=== PATIENT | female | born 1930 | race Caucasian/White ===

== ENCOUNTER 2016-12-10 23:24 | Inpatient (IN) | payer OTHER ==
[~2016-12-10] VITALS: Ht 144.8 cm; Wt 58.2 kg
[~2016-12-10 23:24] MED LIST: ASCO1CAP3 PO; BILB1CAP PO; BIOT1TAB5 PO; BRIM0.2S18 OPB; BROM100T PO; CALC-51 PO; CHOL400T PO; GINK40CA3 PO; LORA-741 PO; LSN5 PO; LUTE6CAP PO; MULTCAP33 PO; OMEG1CAP71 PO; PHYT100T PO; PRED0.12 OPL; VITA10004 PO; ZOLP5TAB PO
[2016-12-10] MEDS ORDERED: SODIUM CHLORIDE 0.9% 500ML 500 ML IV STA (23:34)
[2016-12-10] MEDS ORDERED: BRIM0.1S OP (23:48)
[2016-12-10] MEDS ORDERED: LISI-729 PO (23:49)
[2016-12-11] LABS: BASO % 0.2 %; BASO ABS # 0.04 K/uL (0-0.2); COMPLETE YES; EOS % 0.1 %; HEMATOCRIT 38.6 % (37-47); IG% 0.3 %; LYMPH % 4.8 %; LYMPH ABS # 0.94 K/uL (1.2-3.4); MEAN CELL VOLUME 85.8 fL (80-100); MEAN CORPUSCULAR HEMOGLOBIN 28.9 pg (25-34); MEAN CORPUSCULAR HGB CONC 33.7 g/dl (32-36); MEAN PLATELET VOLUME 10.3 fL (7.4-10.4); MONO % 6.3 %; NEUT % 88.3 %; PLATELET COUNT 211 K/uL (130-400); WHITE BLOOD COUNT 19.69 K/uL (4.8-10.8)
[2016-12-11 00:16] LABS: ALT/SGPT 36 U/L (12-78); BLOOD UREA NITROGEN 17 mg/dl (7-18); BUN/CREATININE RATIO 24.4 (10-20); CARBON DIOXIDE 23 mmol/L (21-32); CHLORIDE 102 mmol/L (98-107); GLUCOSE 127 mg/dl (70-99); POTASSIUM 4.2 mmol/L (3.5-5.1); SODIUM 137 mmol/L (136-145)
[2016-12-11 00:21] LABS: ALKALINE PHOSPHATASE 89 U/L (45-117); AST/SGOT 40 U/L (15-37); CKMB/CK RATIO 2.5 (0-3.0)
[2016-12-11 00:55] LABS: MANUAL MICROSCOPIC REQUIRED? NO; REVIEW REQ? NO; URINE APPEARANCE CLEAR (CLEAR); URINE BILIRUBIN NEG (NEG); URINE COLOR YELLOW; URINE NITRITE NEG (NEG); URINE PH 5.5 (4.5-7.5); URINE SPECIFIC GRAVITY 1.019 (1.000-1.030); UROBILINOGEN NEG (NEG)
[2016-12-11] MEDS ORDERED: ALUMINUM/MAGNESIUM/SIMETH (MAALOX MAX) 30 ML UDC PO PRN (03:45)
[2016-12-11] MEDS ORDERED: MAGNESIUM HYDROXIDE SUSP 30 ML UDC PO PRN (03:45)
[2016-12-11] MEDS ORDERED: LORAZEPAM 0.5 MG TAB PO PRN (03:45)
[2016-12-11] MEDS ORDERED: MoRPHine SULFATE 2 MG/ML CARP IV PRN (03:45)
[2016-12-11] MEDS ORDERED: ONDANSETRON INJ 2 MG/ML 2 ML VIAL IV PRN (03:45)
[2016-12-11] MEDS ORDERED: ACETAMINOPHEN 325 MG TAB PO PRN (03:45)
[2016-12-11] MEDS ORDERED: KETOROLAC TROMETHAMINE 30 MG/ML VIAL IV STA (03:46)
--- NOTE | 2016-12-11 04:03 | EMERGENCY ROOM VISIT NOTE ---
History Report prepared by [place]: Philly Morales Under the Supervision of: Dr. Roger Jha M.D. First contact with patient: 23:28 Chief Complaint: FALL Stated Complaint: FALL History of Present Illness The patient is an 86 year old female who presents to the Emergency Room with complaints of an episode of a fall that occurred today. Per EMS, the patient lives alone. They state that her daughter found her at the bottom of 12 stairs after not being able to contact her. They state that it is unknown how many stairs she fell down and the exact time she fell. EMS states that she has hypertension and they have been fluctuating her medication recently. EMS states that she has an altered mental status. EMS states that they believe she isn't on blood thinners. The patient state that she is experiencing left shoulder pain , right big toe pain, and right hip pain. The patient denies abdominal pain. The patient currently rates her pain as a 3/10 in severity. Source of History: patient, EMS Onset: today Position: other (global) Symptom Intensity: 3/10 Quality: other (global) Timing: other (episode) Associated Symptoms: No abdominal pain Note: The patient complains of left shoulder pain, right big toe pain, and right hip pain. Review of Systems See HPI for pertinent positives & negatives. A total of 10 systems reviewed and were otherwise negative. Past Medical & Surgical Medical Problems: (1) Contusion of knee (2) Contusion of lower leg (3) Fall (4) Rhabdomyolysis (5) Ulcer of lower limb, unspecified (6) Ulcer of lower limb, unspecified Family History No pertinent family history Social History Smoking Status: Never Smoker Alcohol Use: none Drug Use: none Marital Status: Housing Status: lives alone Occupation Status: retired Current/Historical Medications Scheduled Ascorbic Acid (Vitamin C), 500 MG PO BID Bilberry (Vaccinium Myrtillus) (Bilberry), 100 MG PO QAM Biotin (Biotin), 1,000 MCG PO QAM Brimonidine Tartrate (Brimonidine Tartrate), 1 DROP OPB BID Bromelains (Bromelain), 375 MG PO QAM Calcium Carbonate-Vitamin D (Calcium), 1 TAB PO QAM Cholecalciferol (Vitamin D), 4 TABS PO QAM Ginkgo Biloba (Ginkgo Biloba Extract), 40 MG PO QAM Lisinopril (Prinivil), 5 MG PO DAILY Lutein (Lutein), 6 MG PO QAM Multiple Vitamins W/ Minerals (Preservision Areds), 1 CAP PO QAM [place] 3 Fatty Acids-[place] 6 Fa ([place] 3-6-9 Complex), 1 CAP PO QAM Phytonadione (Vitamin K), 100 MCG PO QAM Prednisolone Acetate 0.12% (Pred Mild 0.12% ), 1 DROP OPL DAILY Vitamin E (Vitamin E), 1,000 INTUNIT PO QAM Zolpidem Tartrate (Ambien), 5 MG PO HS Scheduled PRN Lorazepam (Ativan), 0.5 MG PO DAILY PRN for Anxiety Allergies Coded Allergies: Sulfamethoxazole w/Trimethoprim (Verified Allergy, Unknown, ITCHY, 12/10/16) Physical Exam Vital Signs Date Time Temp Pulse Resp B/P (MAP) Pulse Ox O2 Delivery O2 Flow Rate FiO2 12/11/16 04:01 159/89 12/11/16 03:59 127 22 95 12/11/16 03:44 117 18 93 12/11/16 03:31 164/82 12/11/16 03:29 117 14 96 12/11/16 03:14 115 13 96 12/11/16 03:01 149/78 12/11/16 02:59 116 17 97 12/11/16 02:44 112 20 95 12/11/16 02:40 154/80 12/11/16 02:14 114 22 95 12/11/16 02:11 143/82 12/11/16 01:14 107 18 93 12/11/16 01:09 104 17 92 12/11/16 01:01 163/79 12/11/16 00:54 102 22 96 12/11/16 00:39 101 15 97 12/11/16 00:31 143/63 12/11/16 00:24 103 12 95 12/11/16 00:01 155/83 12/10/16 23:54 103 23 95 12/10/16 23:40 103 12/10/16 23:39 103 15 94 12/10/16 23:37 95 Room Air 12/10/16 23:37 93 Room Air 12/10/16 23:37 37.1 104 15 176/85 96 Room Air 12/10/16 23:33 176/85 Physical Exam GENERAL: Patient is a healthy-appearing well-nourished HEAD: Normocephalic atraumatic EYES: Ocular movements intact pupils equal and react to light OROPHARYNX mucous membranes are moist no exudates present no erythema or edema present NECK: Supple no nuchal rigidity CHEST: Good equal expansion LUNGS: Clear and equal to auscultation CARDIAC: Normal S1 and S2 ABDOMEN: Soft nontender no guarding BACK: No CVA tenderness. Bruise to the left shoulder. EXTREMITIES: No pain upon palpation normal muscle strength in all groups no clubbing cyanosis or edema. Right great toe is black and blue. Right index finger is black and blue. Pain to right hip area with movement. NEURO: Patient is following commands and answering questions appropriately. Alert and oriented x3 Cranial Nerves 2-12 grossly intact. GCS of 14. Medical Decision & Procedures ER Provider Diagnostic Interpretation: Radiology results as stated below per my review and radiologist interpretation: CT HEAD: Findings: No intracranial hemorrhage or skull fracture. Atrophy with small vessel disease. Radiologist: Jean Carlos Islas M.D. Study ready at 00:20 and initial results transmitted at 00:22. CT C SPINE: Findings: No fracture or malalignment. Degenerative changes. Lesion in the right lobe of the thyroid gland. Radiologist: Jean Carlos Islas M.D. Study ready at 00:21 and initial results transmitted at 00:25. CHEST X-RAY 1 VIEW: Findings: The x-ray was interpreted by me and there is no evidence on pneumonia , congestion, and pneumothorax. The left shoulder appeared to be intact. RIGHT FEMUR X-RAY 2 VIEW: Findings: The x-ray was interpreted by me and shows no evidence of a fracture, dislocation, or subluxation. There is a questionable sacral fracture present. INDEX FINGER X-RAY 3 VIEW: Findings: The x-ray was interpreted by me and shows no evidence of a fracture, dislocation, or subluxation. There is a large amount of arthritis and an old healing fracture. PELVIS X-RAY 1 VIEW: Findings: The x-ray was interpreted by me and shows a questionable sacral fracture present. There is no evidence of a dislocation or subluxation. LEFT SHOULDER X-RAY 2 VIEW: Findings: The x-ray was interpreted by me and shows no evidence of a fracture, dislocation, or subluxation. RIGHT FOOT X-RAY 2 VIEW: Findings: The x-ray was interpreted by me and shows no evidence of a fracture, dislocation, or subluxation. CT PELVIS: Findings: Right sacral fracture. Subtle fractures of the left pubic bone and right inferior pubic ramus. Can't exclude subtle fracture of the anterior column of the right acetabulum. Trace hip effusions. Radiologist: Jean Carlos Islas M.D. Study read at 02:51 and initial results transmitted at 03:01. Laboratory Results 12/10/16 23:50 Red Blood Count 4.50, Mean Corpuscular Volume 85.8, Mean Corpuscular Hemoglobin 28.9, Mean Corpuscular Hemoglobin Concent 33.7, Mean Platelet Volume 10.3, Neutrophils (%) (Auto) 88.3, Lymphocytes (%) (Auto) 4.8, Monocytes (%) (Auto) 6.3, Eosinophils (%) (Auto) 0.1, Basophils (%) (Auto) 0.2, Neutrophils # (Auto) 17.40, Lymphocytes # (Auto) 0.94, Monocytes # (Auto) 1.24, Eosinophils # (Auto) 0.02, Basophils # (Auto) 0.04 12/10/16 23:50 Test 12/10/16 23:50 12/10/16 23:59 12/11/16 00:43 White Blood Count 19.69 K/uL (4.8-10.8) Red Blood Count 4.50 M/uL (4.2-5.4) Hemoglobin 13.0 g/dL (12.0-16.0) Hematocrit 38.6 % (37-47) Mean Corpuscular Volume 85.8 fL (80-100) Mean Corpuscular Hemoglobin 28.9 pg (25-34) Mean Corpuscular Hemoglobin Concent 33.7 g/dl (32-36) Platelet Count 211 K/uL (130-400) Mean Platelet Volume 10.3 fL (7.4-10.4) Neutrophils (%) (Auto) 88.3 % Lymphocytes (%) (Auto) 4.8 % Monocytes (%) (Auto) 6.3 % Eosinophils (%) (Auto) 0.1 % Basophils (%) (Auto) 0.2 % Neutrophils # (Auto) 17.40 K/uL (1.4-6.5) Lymphocytes # (Auto) 0.94 K/uL (1.2-3.4) Monocytes # (Auto) 1.24 K/uL (0.11-0.59) Eosinophils # (Auto) 0.02 K/uL (0-0.5) Basophils # (Auto) 0.04 K/uL (0-0.2) RDW Standard Deviation 39.1 fL (36.4-46.3) RDW Coefficient of Variation 12.3 % (11.5-14.5) Immature Granulocyte % (Auto) 0.3 % Immature Granulocyte # (Auto) 0.05 K/uL (0.00-0.02) Prothrombin Time 11.0 SECONDS (9.0-12.0) Prothromb Time International Ratio 1.0 (0.9-1.1) Anion Gap 12.0 mmol/L (3-11) Est Creatinine Clear Calc Drug Dose 45.0 ml/min Estimated GFR () 92.2 Estimated GFR (Non- 79.6 BUN/Creatinine Ratio 24.4 (10-20) Calcium Level 9.0 mg/dl (8.5-10.1) Total Bilirubin 1.0 mg/dl (0.2-1) Direct Bilirubin 0.2 mg/dl (0-0.2) Aspartate Amino Transf (AST/SGOT) 40 U/L (15-37) Alanine Aminotransferase (ALT/SGPT) 36 U/L (12-78) Alkaline Phosphatase 89 U/L (45-117) Total Creatine Kinase 348 U/L (26-192) Creatine Kinase MB 8.7 ng/ml (0.5-3.6) Creatine Kinase MB Ratio 2.5 (0-3.0) Troponin I < 0.015 ng/ml (0-0.045) Total Protein 6.5 gm/dl (6.4-8.2) Albumin 3.4 gm/dl (3.4-5.0) Bedside Glucose 131 mg/dl (70-90) Urine Color YELLOW Urine Appearance CLEAR (CLEAR) Urine pH 5.5 (4.5-7.5) Urine Specific [place] 1.019 (1.000-1.030) Urine Protein NEG (NEG) Urine Glucose (UA) 2+ (NEG) Urine Ketones TRACE (NEG) Urine Occult Blood NEG (NEG) Urine Nitrite NEG (NEG) Urine Bilirubin NEG (NEG) Urine Urobilinogen NEG (NEG) Urine Leukocyte Esterase NEG (NEG) Labs reviewed by ED physician. Medications Administered Medications (Trade) Dose Ordered Sig/Marlen Route Start Time Stop Time Status Last Admin Dose Admin Sodium Chloride 500 ml @ 999 mls/hr Q31M STAT IV 12/10/16 23:34 12/11/16 00:04 DC 12/11/16 00:54 999 MLS/HR Ketorolac Tromethamine (Toradol Inj) 15 mg NOW STAT IV 12/11/16 03:46 12/11/16 03:47 DC 12/11/16 04:05 15 MG ED Course 2329: Past medical records reviewed. The patient was evaluated in room B2. A complete history and physical examination was performed. 2334: Ordered NSS 500 ml @ 999 mls/hr IV. 0314: I discussed the patient's case with Dr. Shannon, he has agreed to evaluate the patient for further management and care. Medical Decision Medication Reconciliation: I attest that I have personally reviewed the patient' s current medication list. Blood Pressure Screening: Patient was found to have an elevated blood pressure and will be further monitored by the hospitalist. Differential diagnosis: Etiologies such as fracture, dislocation, intra-abdominal, pneumothorax, intrathoracic , intracranial, neurologic, as well as other traumatic pathologies were entertained. This is an 86-year-old female who presents emergency department after she was found at the bottom of stairs. The patient is slightly confused on my examination with a GCS of 14 and for this reason she was sent for CAT scan of the head. She has numerous bruises to her finger hand as well as left shoulder. She is having right hip pain therefore she was sent for a x-ray of all these areas. The patient's x-rays were concerning for pelvic fractures therefore she was sent for CAT scan of the pelvis. I do not believe that the patient will be able to walk pain free and I do believe that she will need physical therapy and occupational therapy therefore did discuss the case with the hospitalist service who agreed to admit the patient. Patient family were in agreement with the treatment plan. Consults Time Called: [phone] Consulting Physician: Dr. Jacquelyn Raines Returned Call: [phone] I discussed the patient's case with Dr. Shannon, he has agreed to evaluate the patient for further management and care. Impression Primary Impression: Fall Additional Impression: Pelvic fracture Scribe Attestation The scribe's documentation has been prepared under my direction and personally reviewed by me in its entirety. I confirm that the note above accurately reflects all work, treatment, procedures, and medical decision making performed by me. Departure Information Dispostion Being Evaluated By Hospitalist Referrals Dillan Harrison III, M.D. (PCP) Patient Instructions [facility] Problem Qualifiers Primary Impression: Fall Encounter type: initial encounter Qualified Codes: W19.XXXA - Unspecified fall, initial encounter Additional Impression: Pelvic fracture Encounter type: initial encounter Pelvic bone location: multiple parts Fracture type: closed Fracture alignment: with stable disruption of pelvic ring Qualified Codes: S32.810A - Multiple fractures of pelvis with stable disruption of pelvic ring, initial encounter for closed fracture
[2016-12-11 04:25] VITALS: BP 169/91; PULSE 116; TEMP 37.5; O2SAT 96; Ht 144.8 cm; Wt 58.2 kg
[2016-12-11] MEDS ORDERED: KETOROLAC TROMETHAMINE 30 MG/ML VIAL ONE (04:31)
--- NOTE | 2016-12-11 04:54 | History and Physical ---
History & Physical Date & Time of Service: Dec 11, 2016 at 03:59 Chief Complaint: FALL Primary Care Physician: Dillan Harrison III, M.D. History of Present Illness Source: patient, family, clinic records, hospital records This is an 86 year old female with a PMH of HTN, colitis who lives alone at home - presented to the ER after being found in the basement on the ground by a family member. As per daughter, who is at bedside - the patient was last seen on Sunday night (December 08) - she was not answering phone calls over the weekend and was found Sunday night by her son-in-law at the bottom of the stairs in the basement. She uses a walker at baseline - walker was not found near the patient or near the basement door. As per the daughter, the patient has been weak since December 04 - there was a family dinner and patient had a very difficult time standing up. She was seen by her primary care physician on December 08 due to redness and pain in the R lower extremity - was given antibiotics for a possible cellulitis. Currently, she has some pain in the R pelvis area as well as L shoulder. Does not recall the fall at all. States she had been feeling weak prior to the fall. Past Medical/Surgical History Medical Problems: (1) Contusion of knee Status: Resolved (2) Contusion of lower leg Status: Resolved (3) Ulcer of lower limb, unspecified Status: Resolved (4) Ulcer of lower limb, unspecified Status: Resolved Family History No pertinent family history Social History Smoking Status: Never Smoker Drug Use: none Marital Status: Occupational Status: retired Immunizations History of Influenza Vaccine: Unknown History of Tetanus Vaccine?: Unknown History of Pneumococcal: Unknown History of Hepatitis B Vaccine: Unknown Multi-Drug Resistant Organisms History of MDRO: No Allergies Coded Allergies: Sulfamethoxazole w/Trimethoprim (Verified Allergy, Unknown, ITCHY, 12/10/16) Home Medications Scheduled Ascorbic Acid (Vitamin C), 500 MG PO BID Bilberry (Vaccinium Myrtillus) (Bilberry), 100 MG PO QAM Biotin (Biotin), 1,000 MCG PO QAM Brimonidine Tartrate (Brimonidine Tartrate), 1 DROP OPB BID Bromelains (Bromelain), 375 MG PO QAM Calcium Carbonate-Vitamin D (Calcium), 1 TAB PO QAM Cholecalciferol (Vitamin D), 4 TABS PO QAM Ginkgo Biloba (Ginkgo Biloba Extract), 40 MG PO QAM Lisinopril (Prinivil), 5 MG PO DAILY Lutein (Lutein), 6 MG PO QAM Multiple Vitamins W/ Minerals (Preservision Areds), 1 CAP PO QAM [place] 3 Fatty Acids-[place] 6 Fa ([place] 3-6-9 Complex), 1 CAP PO QAM Phytonadione (Vitamin K), 100 MCG PO QAM Prednisolone Acetate 0.12% (Pred Mild 0.12% ), 1 DROP OPL DAILY Vitamin E (Vitamin E), 1,000 INTUNIT PO QAM Zolpidem Tartrate (Ambien), 5 MG PO HS Scheduled PRN Lorazepam (Ativan), 0.5 MG PO DAILY PRN for Anxiety Review of Systems Constitutional: + weakness, + fatigue, No fever, No chills, No sweats Eyes: No worsening of vision, No eye pain ENT: No sore throat Respiratory: No cough, No sputum, No wheezing, No shortness of breath, No dyspnea on exertion, No dyspnea at rest, No hemoptysis Cardiovascular: No chest pain, No edema, No palpitations Abdomen: No pain, No nausea, No vomiting, No diarrhea, No constipation, No GI bleeding Musculoskeletal: + joint pain (R pelvis) Genitourinary - Female: No dysuria, No urinary frequency, No urinary urgency, No urinary incontinence, No urinary retention, No hematuria Neurologic: + balance problems, No weakness, No numbness/tingling, No vertigo Psychiatric: No depression symptoms, No anxiety, No insomnia Endocrine: No fatigue Hematologic / Lymphatic: No abnormal bleeding/bruising Integumentary: No rash Allergic / Immunologic: No environmental allergies, No seasonal allergies Physical Exam Vital Signs Date Time Temp Pulse Resp B/P (MAP) Pulse Ox O2 Delivery O2 Flow Rate FiO2 12/11/16 01:09 104 17 92 12/11/16 01:01 163/79 12/11/16 00:54 102 22 96 12/11/16 00:39 101 15 97 12/11/16 00:31 143/63 12/11/16 00:24 103 12 95 12/11/16 00:01 155/83 12/10/16 23:54 103 23 95 12/10/16 23:40 103 12/10/16 23:39 103 15 94 12/10/16 23:37 95 Room Air 12/10/16 23:37 93 Room Air 12/10/16 23:37 37.1 104 15 176/85 96 Room Air 12/10/16 23:33 176/85 General Appearance: + mild distress (secondary to pain), + pertinent finding (+ tired, +weakness) Head: normocephalic, atraumatic Respiratory/Chest: chest non-tender, lungs clear, normal breath sounds, no respiratory distress, no accessory muscle use Cardiovascular: no edema, no murmur, + tachycardia Abdomen/GI: normal bowel sounds, non tender, soft Extremities/Musculoskelatal: no calf tenderness, normal capillary refill, no pedal edema, + pertinent finding (+erythema at the R lateral aspect) 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, no motor/sensory deficits, alert, normal mood/affect, oriented x 3 Skin: + pertinent finding (bruising throughout body) Lymphatic: no adenopathy Diagnostics Laboratory Results Results Past 24 Hours Test 12/10/16 23:34 12/10/16 23:50 12/10/16 23:59 12/11/16 00:43 Range/Units Creatine Kinase MB Ratio 2.5 0-3.0 White Blood Count 19.69 4.8-10.8 K/uL Red Blood Count 4.50 4.2-5.4 M/uL Hemoglobin 13.0 12.0-16.0 g/dL Hematocrit 38.6 37-47 % Mean Corpuscular Volume 85.8 80-100 fL Mean Corpuscular Hemoglobin 28.9 25-34 pg Mean Corpuscular Hemoglobin Concent 33.7 32-36 g/dl Platelet Count 211 130-400 K/uL Mean Platelet Volume 10.3 7.4-10.4 fL Neutrophils (%) (Auto) 88.3 % Lymphocytes (%) (Auto) 4.8 % Monocytes (%) (Auto) 6.3 % Eosinophils (%) (Auto) 0.1 % Basophils (%) (Auto) 0.2 % Neutrophils # (Auto) 17.40 1.4-6.5 K/uL Lymphocytes # (Auto) 0.94 1.2-3.4 K/uL Monocytes # (Auto) 1.24 0.11-0.59 K/uL Eosinophils # (Auto) 0.02 0-0.5 K/uL Basophils # (Auto) 0.04 0-0.2 K/uL RDW Standard Deviation 39.1 36.4-46.3 fL RDW Coefficient of Variation 12.3 11.5-14.5 % Immature Granulocyte % (Auto) 0.3 % Immature Granulocyte # (Auto) 0.05 0.00-0.02 K/uL Prothrombin Time 11.0 9.0-12.0 SECONDS Prothromb Time International Ratio 1.0 0.9-1.1 Sodium Level 137 136-145 mmol/L Potassium Level 4.2 3.5-5.1 mmol/L Chloride Level 102 98-107 mmol/L Carbon Dioxide Level 23 21-32 mmol/L Anion Gap 12.0 3-11 mmol/L Blood Urea Nitrogen 17 7-18 mg/dl Creatinine 0.70 0.60-1.20 mg/dl Est Creatinine Clear Calc Drug Dose 45.0 ml/min Estimated GFR () 92.2 Estimated GFR (Non- 79.6 BUN/Creatinine Ratio 24.4 10-20 Random Glucose 127 70-99 mg/dl Calcium Level 9.0 8.5-10.1 mg/dl Total Bilirubin 1.0 0.2-1 mg/dl Direct Bilirubin 0.2 0-0.2 mg/dl Aspartate Amino Transf (AST/SGOT) 40 15-37 U/L Alanine Aminotransferase (ALT/SGPT) 36 12-78 U/L Alkaline Phosphatase 89 45-117 U/L Total Creatine Kinase 348 26-192 U/L Creatine Kinase MB 8.7 0.5-3.6 ng/ml Troponin I < 0.015 0-0.045 ng/ml Total Protein 6.5 6.4-8.2 gm/dl Albumin 3.4 3.4-5.0 gm/dl Bedside Glucose 131 70-90 mg/dl Urine Color YELLOW Urine Appearance CLEAR CLEAR Urine pH 5.5 4.5-7.5 Urine Specific [place] 1.019 1.000-1.030 Urine Protein NEG NEG Urine Glucose (UA) 2+ NEG Urine Ketones TRACE NEG Urine Occult Blood NEG NEG Urine Nitrite NEG NEG Urine Bilirubin NEG NEG Urine Urobilinogen NEG NEG Urine Leukocyte Esterase NEG NEG Impression Assessment and Plan This is an 86 year old female with a PMH of HTN, colitis who lives alone at home presented after a fall R Pelvic/Acetabular Fracture s/p fall will try Toradol PRN morphine for breakthrough pain ortho consultation for further recommendations - weightbearing status, etc. PT/OT discharge planning - lives alone, will need rehab Fall likely from weakness, recent infection (cellulitis), ambulatory dysfunction/ balance issues uses walker at baseline, was not using this when fall occurred monitor in tele check orthostatics likely all related from weakness check an echo Head CT negative PT/OT Mild Rhabdomyolysis CPK mildly elevated IVFs repeat CPK in AM R LE Cellulitis erythema, R lateral wound, healing WBC elevated, possibly dehydration vs. infection? start Keflex QID HTN continue Lisinopril DVT ppx subq heparin FULL CODE VTE Prophylaxis VTE Risk Assessment Done? Y/N: Yes Risk Level: Moderate
[2016-12-11] MEDS ORDERED: PRED1SUS3 OPL (05:52)
[2016-12-11] MEDS: SODIUM CHLORIDE 0.9% 1000ML 1,000 ML IV SCH ×2 (05:55→17:22)
[2016-12-11] MEDS: HEPARIN SOD 5000 UNIT/0.5 ML CARP SQ SCH ×3 (05:57→21:21)
--- NOTE | 2016-12-11 06:44 | DIAGNOSTIC IMAGING REPORT ---
PELVIS 1 OR 2 VIEW ROUTINE HISTORY:86 yearsFemalePt c/o Rt hip pain COMPARISON: CT abdomen and pelvis 12/19/2015, CT pelvis 12/11/2016. TECHNIQUE: Single AP view of the pelvis. FINDINGS: There is background moderate bone demineralization which limits sensitivity for acute nondisplaced fracture. Subtle acute nondisplaced fracture of the inferior right pubic ramus is noted. The subtle left pubic fracture seen on CT is not identified. Subacute nondisplaced fracture of the inferior right sacral ala also noted. 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 There is advanced intervertebral disc space narrowing at L4-L5. IMPRESSION: 1. Moderate background bone demineralization limits the sensitivity for acute nondisplaced fracture evaluation. 2. Subtle acute nondisplaced fractures are seen involving the inferior right pubic ramus and right sacral ala, both of which are better evaluated on the CT study of same day. The above report was generated using voice recognition software. It may contain grammatical, syntax or spelling errors. Electronically signed by: Rodrigo Ludwig 12/11/2016 6:43 AM Dictated Date/Time: 12/11/2016 6:38 AM
--- NOTE | 2016-12-11 06:47 | DIAGNOSTIC IMAGING REPORT ---
LEFT SHOULDER MIN 2 VIEWS ROUTINE HISTORY:86 yearsFemalePt c/o left shoulder pain COMPARISON: Chest radiograph of same day. TECHNIQUE: 3 views of the left shoulder. FINDINGS: There is moderate osteoarthritis of the glenohumeral joint. Bones are moderately demineralized. Humeral head is high riding within the glenoid fossa. Moderate to severe osteoarthritis is seen within the acromioclavicular joint. No acute fracture or dislocation is identified. There is atherosclerosis of the aorta. Imaged lung [place]ano appear clear. No radiopaque foreign body. IMPRESSION: 1. No acute fracture or dislocation identified. 2. 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 3. High riding humeral head compatible with underlying rotator cuff pathology. The above report was generated using voice recognition software. It may contain grammatical, syntax or spelling errors. Electronically signed by: Rodrigo Ludwig 12/11/2016 6:45 AM Dictated Date/Time: 12/11/2016 6:43 AM
--- NOTE | 2016-12-11 06:55 | DIAGNOSTIC IMAGING REPORT ---
CHEST ONE VIEW PORTABLE CLINICAL HISTORY: Left shoulder pain following fall. COMPARISON STUDY: Chest radiograph December 19, 2015. FINDINGS: There is no pneumothorax or pleural effusion. Pulmonary vascularity is normal. Mild cardiomegaly is unchanged. There is no evidence of pulmonary edema. IMPRESSION: No acute cardiopulmonary findings. Electronically signed by: Abihnav Manley M.D. 12/11/2016 6:54 AM Dictated Date/Time: 12/11/2016 6:54 AM
--- NOTE | 2016-12-11 07:00 | DIAGNOSTIC IMAGING REPORT ---
CT OF THE HEAD WITHOUT CONTRAST CLINICAL HISTORY: Fall. Altered mental status. COMPARISON STUDY: Head CT January 06, 2016. TECHNIQUE: Helical axial images of the head were obtained without IV contrast. Automated exposure control was utilized for the study. FINDINGS: No acute intracranial hemorrhage, midline shift or mass effect is present. Ventricular system is stable. Basilar cisterns are patent. There are no extra-axial collections. White matter hypodensity suggests small vessel disease. A 1.3 cm periventricular hypodensity within the left frontal lobe shown on axial image 18 is new since exam of January 06, 2016. There is no calvarial fracture. IMPRESSION: 1. No acute intracranial hemorrhage or mass effect. 2. No calvarial fracture. 3. 1.3 cm periventricular hypodensity within the left frontal lobe which is new since head CT of January 06, 2016. This is age indeterminate but likely subacute to chronic. Electronically signed by: Abhinav Manley M.D. 12/11/2016 6:59 AM Dictated Date/Time: 12/11/2016 6:57 AM
--- NOTE | 2016-12-11 07:03 | DIAGNOSTIC IMAGING REPORT ---
CT OF THE CERVICAL SPINE WITHOUT CONTRAST CLINICAL HISTORY: Altered mental status. Fall. COMPARISON STUDY: No previous studies for comparison. TECHNIQUE: Helical axial images of the cervical spine were obtained without IV contrast. Sagittal and coronal reconstructions were viewed. FINDINGS: No acute cervical spine fracture is identified. There is mild anterolisthesis of C4 on C5. This is likely degenerative. There is no acute fracture. There is marked multilevel disc space narrowing with osteophytosis. There is severe multilevel facet arthrosis. There is slight reversal of the normal cervical lordosis. IMPRESSION: 1. No acute cervical spine fracture or subluxation. 2. Severe multilevel degenerative disc disease and facet arthrosis. Electronically signed by: Abhinav Manley M.D. 12/11/2016 7:02 AM Dictated Date/Time: 12/11/2016 7:00 AM
--- NOTE | 2016-12-11 07:08 | DIAGNOSTIC IMAGING REPORT ---
RIGHT TOE(S) MIN 2 VIEWS CLINICAL HISTORY: Right great toe pain. COMPARISON: None FINDINGS: There is an acute nondisplaced fracture within the distal aspect of the proximal phalanx of the right first toe. There is hallux valgus deformity with moderate arthritis of the right first metatarsophalangeal joint. IMPRESSION: Acute nondisplaced fracture within the distal aspect of the proximal phalanx of the right first toe. Electronically signed by: Abhinav Manley M.D. 12/11/2016 7:07 AM Dictated Date/Time: 12/11/2016 7:04 AM
--- NOTE | 2016-12-11 07:29 | DIAGNOSTIC IMAGING REPORT ---
PELVIS NO IV/ORAL CONT (CT) CLINICAL HISTORY: Fall. COMPARISON STUDY: CT of the abdomen and pelvis December 19, 2015 and pelvis radiograph December 11, 2016. FINDINGS: This exam is mildly compromised by motion artifact. There is an acute nondisplaced fracture of the right sacral ala. In addition, there is an acute nondisplaced fracture the medial left pubic bone and an acute nondisplaced fracture of the right inferior pubic ramus. There is also a nondisplaced fracture of the right superior pubic ramus which extends into the anterior column of the right acetabulum. There is a small amount of adjacent hemorrhage. There is no large mediastinal hematoma. No acute proximal femoral fracture is present. IMPRESSION: Acute nondisplaced fractures of the right ischiopubic ring, left pubic bone and right sacral ala. Electronically signed by: Abhinav Manley M.D. 12/11/2016 7:28 AM Dictated Date/Time: 12/11/2016 7:23 AM
--- NOTE | 2016-12-11 07:33 | DIAGNOSTIC IMAGING REPORT ---
RIGHT FEMUR 2 VIEWS ROUTINE CLINICAL HISTORY: Right hip pain following fall. COMPARISON: CT of the abdomen and pelvis December 19, 2015. FINDINGS: Acute nondisplaced right ischiopubic ring fractures are noted. Alignment of the right hip is anatomic. Alignment of the right knee is anatomic. There is no acute fracture of the right femur. IMPRESSION: 1. No acute fracture of the right femur. 2. Acute nondisplaced right ischiopubic ring fractures. Electronically signed by: Abhinav Manley M.D. 12/11/2016 7:32 AM Dictated Date/Time: 12/11/2016 7:30 AM
--- NOTE | 2016-12-11 07:42 | DIAGNOSTIC IMAGING REPORT ---
RIGHT SECOND FINGER RADIOGRAPHS CLINICAL HISTORY: Right second finger pain following fall. COMPARISON: None FINDINGS: No acute fracture is identified. There is complete loss of the joint space with extensive osteophytosis of the proximal interphalangeal joint suggestive of severe osteoarthritis. 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 Osteoarthritis is noted within multiple additional articulations within the right hand. No acute fracture is identified. IMPRESSION: 1. No acute fracture or dislocation of the right second finger. 2. 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 Electronically signed by: Abhinav Manley M.D. 12/11/2016 7:40 AM Dictated Date/Time: 12/11/2016 7:38 AM
[2016-12-11 07:44] VITALS: BP 125/73; PULSE 108; TEMP 37; O2SAT 95
[2016-12-11] MEDS ORDERED: [UNRECOGNIZED DRUG - OTHER] SCH (08:00)
[2016-12-11] MEDS ORDERED: CEPHALEXIN MONOHYDRATE 500 MG CAP PO SCH (09:00)
[2016-12-11] MEDS: PrednisoLONE ACET 1% OP SUSP 5 ML BTL OPL SCH (09:00)
[2016-12-11] MEDS: BRIMONIDINE TARTRATE 0.2% 5ML OPB SCH ×2 (09:06→19:48)
[2016-12-11] MEDS: LISINOPRIL 5 MG TAB PO SCH (09:07)
[2016-12-11] MEDS ORDERED: NURSING VERBAL MED ORDER ONE (11:45)
[2016-12-11] MEDS: KETOROLAC TROMETHAMINE 15 MG/ML VIAL IV. PRN (12:23)
--- NOTE | 2016-12-11 12:25 | Progress Note ---
Progress Note Date of Service Dec 11, 2016. Progress Note Patient with hx of HTN, Colitis, comes in with a fall at her home. She was found to be in her basement floor without her walker. Last seen was on 12/08/16 by family member. Today doing better, generalized weakness + hard of hearing + Denies any pain. Exam: Gen- AAOX2, hard of hearing Neck- No JVD Lungs- AEBE, no wheezing Heart- S1, S2 normal Abdomen= soft, non tender, non distended, BS present Ext- RLE- healing wound with mild erythema (from trauma) ASSESSMENT /PLAN: 1. Right pelvic (Right ischiopubic ring/Left pubic bone/Right sacral ala)/ Acetabular/Right 1st toe proximal phalanx fractures- S/P Fall in setting of osteoarthritis- multiple joints Unclear etiology as patient found on floor by relative. -Pain mx- controlled -Ortho consulted on admission -PT/OT. Will need rehab 2. Physical deconditioning, likely age related , progressively worsening -No signs of infection noted at this point -Monitor -PT/OT 3. RLE Cellulitis S/P Trauma to right daily, Was being treated with keflex since 12/08/16. Had a reaction to keflex so was changed to Augmentin by PCP -Will change to Doxycycline x 5 more days -No concerning signs of worsening of cellulitis- improving 4. HTN continue Lisinopril 5. DVT ppx subq heparin 6 DISPOSITION PT/OT Will need placement as lives alone Will monitor for 24 hours as ? fall etiology FULL CODE
[2016-12-11 12:30] VITALS: BP 110/61; PULSE 97; TEMP 37.1; O2SAT 94
[2016-12-11] MEDS ORDERED: OXYCODONE/ACETAMINOPHEN 5-325 TAB PO PRN (12:30)
--- NOTE | 2016-12-11 14:55 | Orthopedic Consultation ---
Orthopedic Consultation Date of Consultation: Dec 11, 2016. Attending Physician: Pooja. Wyman S Reason for Consultation: Pelvic fractures and right toe fracture History of Present Illness Patient is a 86-year-old female who had sustained a fall and was found down in her basement. She has been having progressively increasing weakness recently. She is currently complaining of pain right hip right heel as well as right toe and left shoulder Past Medical/Surgical History Medical Problems: (1) Altered mental status Status: Acute (2) Cellulitis Status: Acute (3) Colitis Status: Acute (4) Fall Status: Acute (5) Lower GI bleed Status: Acute (6) Pelvic fracture Status: Acute (7) Radius fracture Status: Acute Family History No pertinent family history Social History Smoking Status: Never Smoker Drug Use: none Marital Status: Housing Status: lives alone Occupation Status: retired Allergies Coded Allergies: Cephalexin (Verified Allergy, Severe, HIVES, 12/11/16) Big puffy gilliam under her eyes Sulfamethoxazole w/Trimethoprim (Verified Allergy, Unknown, ITCHY, 12/10/16) Home Medications Scheduled Ascorbic Acid (Vitamin C), 500 MG PO BID Bilberry (Vaccinium Myrtillus) (Bilberry), 100 MG PO QAM Biotin (Biotin), 1,000 MCG PO QAM Brimonidine Tartrate (Brimonidine Tartrate), 1 DROP OPB BID Bromelains (Bromelain), 375 MG PO QAM Calcium Carbonate-Vitamin D (Calcium), 1 TAB PO QAM Cholecalciferol (Vitamin D), 4 TABS PO QAM Ginkgo Biloba (Ginkgo Biloba Extract), 40 MG PO QAM Lisinopril (Prinivil), 5 MG PO DAILY Lutein (Lutein), 6 MG PO QAM Multiple Vitamins W/ Minerals (Preservision Areds), 1 CAP PO QAM [place] 3 Fatty Acids-[place] 6 Fa ([place] 3-6-9 Complex), 1 CAP PO QAM Phytonadione (Vitamin K), 100 MCG PO QAM Prednisolone Acetate (Ophth) (Pred Forte 1% Oph), 1 DROPS OPL DAILY Vitamin E (Vitamin E), 1,000 INTUNIT PO QAM Zolpidem Tartrate (Ambien), 5 MG PO HS Scheduled PRN Lorazepam (Ativan), 0.5 MG PO DAILY PRN for Anxiety Current Inpatient Medications Current Inpatient Medications Medications (Trade) Dose Ordered Sig/Marlen Route Start Time Stop Time Status Last Admin Dose Admin Ketorolac Tromethamine (Toradol Inj) 15 mg Q6H PRN IV. 12/11/16 03:45 12/16/16 03:44 12/11/16 12:23 15 MG Morphine Sulfate (MoRPHine SULFATE INJ) 1 mg Q4 PRN IV 12/11/16 03:45 12/25/16 03:44 Heparin Sodium (Porcine) (Heparin Sq 5000 Unit/0.5ml) 5,000 unit Q8 SQ 12/11/16 06:00 01/10/17 05:59 12/11/16 05:57 5,000 UNIT Acetaminophen (Tylenol Tab) 650 mg Q4H PRN PO 12/11/16 03:45 01/10/17 03:44 Al Hydrox/Mg Hydrox/Simethicone (Maalox Max Susp) 15 ml Q4H PRN PO 12/11/16 03:45 01/10/17 03:44 Magnesium Hydroxide (Milk Of Magnesia Susp) 30 ml Q12H PRN PO 12/11/16 03:45 01/10/17 03:44 Ondansetron HCl (Zofran Inj) 4 mg Q6H PRN IV 12/11/16 03:45 01/10/17 03:44 12/11/16 04:30 4 MG Polyethylene (Miralax Powder Packet) 17 gm DAILY PRN PO 12/11/16 03:45 01/10/17 03:44 Brimonidine Tartrate (Alphagan 0.2% Soln) 1 drops BID OPB 12/11/16 09:00 01/10/17 08:59 12/11/16 09:06 1 DROPS Lisinopril (Zestril Tab) 5 mg DAILY PO 12/11/16 09:00 01/10/17 08:59 12/11/16 09:07 5 MG Lorazepam (Ativan Tab) 0.5 mg DAILY PRN PO 12/11/16 03:45 01/10/17 03:44 Zolpidem Tartrate (Ambien Tab) 5 mg HS PO 12/11/16 21:00 01/10/17 20:59 Sodium Chloride 1,000 ml @ 80 mls/hr [id number] IV 12/11/16 05:15 01/10/17 05:14 12/11/16 05:55 80 MLS/HR Prednisolone Acetate (Pred Forte 1% Oph Susp) 1 drops DAILY OPL 12/11/16 09:00 01/10/17 08:59 12/11/16 09:00 1 DROPS Doxycycline Hyclate (Vibramycin Cap) 100 mg BID PO 12/11/16 13:30 12/16/16 13:29 Lactobacillus Acidophilus (Floranex Tab) 4 tab TIDM PO 12/11/16 16:45 01/10/17 16:44 Oxycodone/ Acetaminophen (Percocet 5-325mg Tab) 1 tab Q6H PRN PO 12/11/16 12:30 12/25/16 12:29 Physical Exam Date Time Temp Pulse Resp B/P (MAP) Pulse Ox O2 Delivery O2 Flow Rate FiO2 12/11/16 12:30 37.1 97 20 110/61 (77) 94 Room Air 12/11/16 12:05 Room Air 12/11/16 08:00 Room Air 12/11/16 07:44 37.0 108 20 125/73 (90) 95 Room Air 12/11/16 04:25 37.5 116 20 169/91 96 Room Air 12/11/16 04:01 159/89 12/11/16 03:59 127 22 95 12/11/16 03:44 117 18 93 12/11/16 03:31 164/82 12/11/16 03:29 117 14 96 12/11/16 03:14 115 13 96 12/11/16 03:01 149/78 12/11/16 02:59 116 17 97 12/11/16 02:44 112 20 95 12/11/16 02:40 154/80 12/11/16 02:14 114 22 95 12/11/16 02:11 143/82 12/11/16 01:14 107 18 93 12/11/16 01:09 104 17 92 12/11/16 01:01 163/79 12/11/16 00:54 102 22 96 12/11/16 00:39 101 15 97 12/11/16 00:31 143/63 12/11/16 00:24 103 12 95 12/11/16 00:01 155/83 12/10/16 23:54 103 23 95 12/10/16 23:40 103 12/10/16 23:39 103 15 94 12/10/16 23:37 95 Room Air 12/10/16 23:37 93 Room Air 12/10/16 23:37 37.1 104 15 176/85 96 Room Air 12/10/16 23:33 176/85 General Appearance: WD/WN, no apparent distress Head: normocephalic Eyes: normal inspection ENT: normal ENT inspection Respiratory/Chest: lungs clear Cardiovascular: regular rate, rhythm Extremities/Musculoskelatal: + pertinent finding (swelling and ecchymoses over the right great toe. Tender to palpation proximal phalanx. Tender to palpation along the heel at the Achilles insertion. No tenderness along the tibia knee or femur. She has some pain that she locates to the hip with rotation. Left shoulder has abrasions superiorly and posteriorly. She is having difficulty elevating the arm.) Laboratory Results Last 24 Hours Test 12/10/16 23:34 12/10/16 23:50 12/10/16 23:59 12/11/16 00:43 Creatine Kinase MB Ratio 2.5 White Blood Count 19.69 K/uL Red Blood Count 4.50 M/uL Hemoglobin 13.0 g/dL Hematocrit 38.6 % Mean Corpuscular Volume 85.8 fL Mean Corpuscular Hemoglobin 28.9 pg Mean Corpuscular Hemoglobin Concent 33.7 g/dl Platelet Count 211 K/uL Mean Platelet Volume 10.3 fL Neutrophils (%) (Auto) 88.3 % Lymphocytes (%) (Auto) 4.8 % Monocytes (%) (Auto) 6.3 % Eosinophils (%) (Auto) 0.1 % Basophils (%) (Auto) 0.2 % Neutrophils # (Auto) 17.40 K/uL Lymphocytes # (Auto) 0.94 K/uL Monocytes # (Auto) 1.24 K/uL Eosinophils # (Auto) 0.02 K/uL Basophils # (Auto) 0.04 K/uL RDW Standard Deviation 39.1 fL RDW Coefficient of Variation 12.3 % Immature Granulocyte % (Auto) 0.3 % Immature Granulocyte # (Auto) 0.05 K/uL Prothrombin Time 11.0 SECONDS Prothromb Time International Ratio 1.0 Sodium Level 137 mmol/L Potassium Level 4.2 mmol/L Chloride Level 102 mmol/L Carbon Dioxide Level 23 mmol/L Anion Gap 12.0 mmol/L Blood Urea Nitrogen 17 mg/dl Creatinine 0.70 mg/dl Est Creatinine Clear Calc Drug Dose 45.0 ml/min Estimated GFR () 92.2 Estimated GFR (Non- 79.6 BUN/Creatinine Ratio 24.4 Random Glucose 127 mg/dl Calcium Level 9.0 mg/dl Total Bilirubin 1.0 mg/dl Direct Bilirubin 0.2 mg/dl Aspartate Amino Transf (AST/SGOT) 40 U/L Alanine Aminotransferase (ALT/SGPT) 36 U/L Alkaline Phosphatase 89 U/L Total Creatine Kinase 348 U/L Creatine Kinase MB 8.7 ng/ml Troponin I < 0.015 ng/ml Total Protein 6.5 gm/dl Albumin 3.4 gm/dl Bedside Glucose 131 mg/dl Urine Color YELLOW Urine Appearance CLEAR Urine pH 5.5 Urine Specific [place] 1.019 Urine Protein NEG Urine Glucose (UA) 2+ Urine Ketones TRACE Urine Occult Blood NEG Urine Nitrite NEG Urine Bilirubin NEG Urine Urobilinogen NEG Urine Leukocyte Esterase NEG Assessment & Plan Right great toe partial phalanx fracture, nondisplaced Right zone 1 sacral alar fracture, nondisplaced Right superior and inferior pubic rami fractures, nondisplaced Right medial pubis fracture, nondisplaced Plan: She can be weightbearing as tolerated on the right lower extremity. She has been complaining of some pain in the heel we will check an x-ray in this region just to ensure there is no fracture but there is no swelling or ecchymosis in this region
--- NOTE | 2016-12-11 14:58 | DIAGNOSTIC IMAGING REPORT ---
RIGHT FOOT MIN 3 VIEWS ROUTINE HISTORY:86 yearsFemalepain Right COMPARISON: Radiographs of the right toe same day TECHNIQUE: 3 views of the right foot. FINDINGS: Acute nondisplaced fracture of the intra-articular distal aspect of the first proximal phalanx is again seen with mild associated soft tissue swelling. Hallux valgus deformity with advanced degenerative changes of the first metatarsophalangeal joint again seen. Hammertoe deformities are noted within the second through fourth metatarsophalangeal joints. Vascular calcifications are noted. Soft tissue calcifications in the pretibial tissues are partially imaged. There is prominent spurring of the distal Achilles tendon. IMPRESSION: 1. Acute nondisplaced intra-articular fracture of the distal aspect of the first proximal phalanx redemonstrated with soft tissue swelling. 2. Hallux valgus deformity with advanced degenerative changes of the first MTP joint. 3. Peripheral vascular disease. The above report was generated using voice recognition software. It may contain grammatical, syntax or spelling errors. Electronically signed by: Rodrigo Ludwig 12/11/2016 2:57 PM Dictated Date/Time: 12/11/2016 2:54 PM
[2016-12-11] MEDS: DOXYCYCLINE HYCLATE 100 MG CAP PO SCH ×2 (15:08→19:49)
[2016-12-11 15:57] VITALS: BP 117/71; PULSE 93; TEMP 36.7; O2SAT 98
[2016-12-11] MEDS ORDERED: LACTOBACILLUS ACIDOPHILUS (FLORANEX) TAB PO SCH (16:45)
[2016-12-11] MEDS ORDERED: NURSING DECISION MEDICATION ORDER SCH (17:45)
--- NOTE | 2016-12-11 17:46 | ECHOCARDIOGRAM REPORT ---
*NOTICE TO RECEIVING DEMOCRAT AGENCY This information is strictly Confidential and protected under [place] law. [place] law prohibits you from making any further disclosure of this information unless further disclosure is expressly permitted by the written consent of the person to whom it pertains or is authorized by law. A general authorization for the release of medical or other information is not sufficient for this purpose. Hospital accepts no responsibility if the information is made available to any other person, INCLUDING THE PATIENT. Interpretation Summary * Name: JOSÉ MIGUELRadhaBETSEY EARLY Arlette Study Date: 12/11/2016 07:07 AM BP: 125/73 mmHg * Patient Location: [id number]\S\S238\S\2 HR: 108 * : 1930 (M/d/yyy) Gender: Female Height: 58 in * Age: 86 yrs Ethnicity: [place] Weight: 127 lb * Ordering Physician: Kanchan Dwyer * Referring Physician: Self, Referred * Performed By: Betsey Brooks RDCS * * Reason For Study: SYNCOPE * BSA: 1.5 m2 * PATIENT UNABLE TO FOLLOW COMMANDS, SUPINE, COULD NOT HOLD BREATH * -- Conclusions -- * The left ventricular wall motion is normal. * The left ventricle is hyperdynamic. * Ejection Fraction = >70 %. * The right ventricle is normal in size and function. * There mild mitral annular calcification, otherwise there is no significant valvular heart disease. Procedure Details * A contrast injection of Definity was performed to improve assessment of LV function. * Contrast was injected into an intravenous site in the right arm. * One vial of Definity ultrasound contrast was diluted in normal saline to a total volume of 10 ml. A total of '2' ml of solution was administered during imaging. * Lot # [id number] of Definity utilized for procedure. * Expiration date JAN 19. * The attending nurse who injected the contrast agent was MARY GUEVARA RN. * A complete two-dimensional transthoracic echocardiogram was performed (2D, M-mode, Doppler and color flow Doppler). Left Ventricle * The left ventricular cavity is small. * There is normal left ventricular wall thickness. * The left ventricle is hyperdynamic. * Ejection Fraction = >70 %. * The left ventricular wall motion is normal. Right Ventricle * The right ventricle is normal in size and function. Atria * The left atrial size is normal. * Right atrial size is normal. * There is no evidence of atrial septal defect, but resolution does not allow assessment for a patent foramen ovale. Mitral Valve * There is mild mitral annular calcification. * There is no mitral valve stenosis. * Significant mitral regurgitation is absent. Tricuspid Valve * The tricuspid valve is normal. * There is no tricuspid stenosis. * There is mild tricuspid regurgitation. Aortic Valve * The aortic valve is trileaflet. * Aortic stenosis is absent. * There is no significant aortic regurgitation. Pulmonic Valve * The pulmonary valve is not well seen, but the Doppler examination is normal without significant regurgitation or stenosis. Great Vessels * The aortic root and proximal ascending aorta are normal sized. Pericardium/Pleural * There is no pericardial effusion. Great Vessels * Normal inferior vena cava diameter and respiratory variation suggests normal central venous pressure. MMode 2D Measurements and Calculations IVSd 1.7 cm IVSs 2.2 cm LVIDd 2.7 cm LVIDs 1.6 cm LVPWd 1.8 cm LVPWs 1.9 cm IVS/LVPW 0.94 FS 41.5 % EDV(Teich) 27.4 ml ESV(Teich) 7.0 ml EF(Teich) 74.4 % EDV(cubed) 20.0 ml ESV(cubed) 4.0 ml EF(cubed) 80.0 % % IVS thick 27.3 % % LVPW thick 6.6 % LV mass(C)d 183.8 grams LV mass(C)dI 122.4 grams/m\S\2 LV mass(C)s 149.0 grams LV mass(C)sI 99.2 grams/m\S\2 SV(Teich) 20.4 ml SI(Teich) 13.6 ml/m\S\2 SV(cubed) 16.0 ml SI(cubed) 10.7 ml/m\S\2 Ao root diam 2.8 cm Ao root area 6.4 cm\S\2 LA dimension 2.8 cm LA/Ao 0.98 LVAd ap4 16.7 cm\S\2 LVLd ap4 6.2 cm EDV(MOD-sp4) 36.5 ml EDV(sp4-el) 38.5 ml LVAs ap4 7.2 cm\S\2 LVLs ap4 4.9 cm ESV(MOD-sp4) 8.7 ml ESV(sp4-el) 9.1 ml EF(MOD-sp4) 76.0 % EF(sp4-el) 76.5 % SV(MOD-sp4) 27.7 ml SI(MOD-sp4) 18.5 ml/m\S\2 SV(sp4-el) 29.5 ml SI(sp4-el) 19.6 ml/m\S\2 Doppler Measurements and Calculations MV E max miriam 149.9 cm/sec MV dec time 0.15 sec Ao V2 max 148.2 cm/sec Ao max PG 8.8 mmHg Ao max PG (full) 1.9 mmHg LV V1 max PG 6.8 mmHg LV V1 max 130.8 cm/sec TR max miriam 276.0 cm/sec
[2016-12-11 19:38] VITALS: BP 136/75; PULSE 92; TEMP 36.8; O2SAT 93
[2016-12-11] MEDS: ZOLPIDEM TARTRATE 5 MG TAB PO SCH (21:23)
[2016-12-11 23:26] VITALS: BP 132/74; PULSE 88; TEMP 37.2; O2SAT 92
[2016-12-12 04:11] VITALS: BP 155/74; PULSE 87; TEMP 36.7; O2SAT 96
[2016-12-12] MEDS: HEPARIN SOD 5000 UNIT/0.5 ML CARP SQ SCH ×3 (05:58→22:00)
[2016-12-12] MEDS: SODIUM CHLORIDE 0.9% 1000ML 1,000 ML IV SCH ×2 (06:02→17:53)
[2016-12-12] MEDS ORDERED: ACIDOPHILUS PEARLS PO SCH (07:30)
[2016-12-12 07:52] LABS: HEMATOCRIT 33.9 % (37-47); MEAN CELL VOLUME 86.9 fL (80-100); MEAN CORPUSCULAR HEMOGLOBIN 28.5 pg (25-34); MEAN CORPUSCULAR HGB CONC 32.7 g/dl (32-36); MEAN PLATELET VOLUME 10.1 fL (7.4-10.4); PLATELET COUNT 174 K/uL (130-400); WHITE BLOOD COUNT 7.85 K/uL (4.8-10.8)
[2016-12-12 08:01] VITALS: BP 159/76; PULSE 89; TEMP 36.8; O2SAT 97
[2016-12-12] MEDS: KETOROLAC TROMETHAMINE 15 MG/ML VIAL IV. PRN (08:04)
[2016-12-12] MEDS: ACIDOPHILUS PEARLS PO SCH ×3 (08:14→17:53)
[2016-12-12] MEDS: BRIMONIDINE TARTRATE 0.2% 5ML OPB SCH ×2 (08:14→21:59)
[2016-12-12] MEDS: PrednisoLONE ACET 1% OP SUSP 5 ML BTL OPL SCH (08:15)
[2016-12-12] MEDS: PREDNISOLONE ACETATE 0.12% OPL SCH (08:15)
[2016-12-12] MEDS: DOXYCYCLINE HYCLATE 100 MG CAP PO SCH ×2 (08:16→21:58)
[2016-12-12] MEDS: LISINOPRIL 5 MG TAB PO SCH (08:16)
[2016-12-12 08:21] LABS: BUN/CREATININE RATIO 21.6 (10-20); CALCIUM 8.5 mg/dl (8.5-10.1); CREATININE 0.62 mg/dl (0.60-1.20)
[2016-12-12 11:06] VITALS: BP 120/63; PULSE 67; TEMP 36.7; O2SAT 94
--- NOTE | 2016-12-12 14:11 | Neurology Consultation ---
Neurology Consultation Date of Consultation: Dec 12, 2016. Attending Physician: Kalli Davis M.D. Primary Care Physician: Dillan Harrison III, M.D. Reason for Consultation: Fall with possible head trauma and concussion History of Present Illness Source: patient, hospital records 86v year old woman admitted on the for an unwitnessed and poorly recalled fall down the basement stairs with subsequent fractures of her pelvis and right great toe bruising and minor closed head injury who was ostensibly normal neurologically prior to this event and developed some confusion last evening which has largely cleared now Neurology is called to address the findings of a new left frontal hypodensity seen on a nonenhanced head ct on admission that is new since 2016 when she apparently had a fall with some trauma as well I do no know her gait status prior to this event and she denies any thing significant and specifically denies any numbness of legs weakness of legs or arms and no bowel or bladder dysfunction and now despite the head injury has no significant visural issues vertigo headache etc. Past Medical/Surgical History Medical Problems: (1) Altered mental status Status: Acute (2) Cellulitis Status: Acute (3) Colitis Status: Acute (4) Fall Status: Acute (5) Lower GI bleed Status: Acute (6) Pelvic fracture Status: Acute (7) Radius fracture Status: Acute Past Medical/Surgical History Medical Problems: (1) Contusion of knee Status: Resolved (2) Contusion of lower leg Status: Resolved (3) Ulcer of lower limb, unspecified Status: Resolved (4) Ulcer of lower limb, unspecified Status: Resolved Family History No pertinent family history Social History Smoking Status: Never Smoker Drug Use: none Marital Status: Occupational Status: retired Immunizations History of Influenza Vaccine: Unknown History of Tetanus Vaccine?: Unknown History of Pneumococcal: Unknown History of Hepatitis B Vaccine: Unknown Multi-Drug Resistant Organisms History of MDRO: No Allergies Coded Allergies: Sulfamethoxazole w/Trimethoprim (Verified Allergy, Unknown, ITCHY, 12/10/16) Home Medications Scheduled Ascorbic Acid (Vitamin C), 500 MG PO BID Bilberry (Vaccinium Myrtillus) (Bilberry), 100 MG PO QAM Biotin (Biotin), 1,000 MCG PO QAM Brimonidine Tartrate (Brimonidine Tartrate), 1 DROP OPB BID Bromelains (Bromelain), 375 MG PO QAM Calcium Carbonate-Vitamin D (Calcium), 1 TAB PO QAM Cholecalciferol (Vitamin D), 4 TABS PO QAM Ginkgo Biloba (Ginkgo Biloba Extract), 40 MG PO QAM Lisinopril (Prinivil), 5 MG PO DAILY Lutein (Lutein), 6 MG PO QAM Multiple Vitamins W/ Minerals (Preservision Areds), 1 CAP PO QAM Superior 3 Fatty Acids-Superior 6 Fa (Superior 3-6-9 Complex), 1 CAP PO QAM Phytonadione (Vitamin K), 100 MCG PO QAM Prednisolone Acetate 0.12% (Pred Mild 0.12% ), 1 DROP OPL DAILY Vitamin E (Vitamin E), 1,000 INTUNIT PO QAM Zolpidem Tartrate (Ambien), 5 MG PO HS Scheduled PRN Lorazepam (Ativan), 0.5 MG PO DAILY PRN for Anxiety Review of Systems Constitutional: + weakness, + fatigue, No fever, No chills, No sweats Eyes: No worsening of vision, No eye pain ENT: No sore throat Respiratory: No cough, No sputum, No wheezing, No shortness of breath, No dyspnea on exertion, No dyspnea at rest, No hemoptysis Cardiovascular: No chest pain, No edema, No palpitations Abdomen: No pain, No nausea, No vomiting, No diarrhea, No constipation, No GI bleeding Musculoskeletal: + joint pain (R pelvis) Genitourinary - Female: No dysuria, No urinary frequency, No urinary urgency, No urinary incontinence, No urinary retention, No hematuria Neurologic: + balance problems, No weakness, No numbness/tingling, No vertigo Psychiatric: No depression symptoms, No anxiety, No insomnia Endocrine: No fatigue Hematologic / Lymphatic: No abnormal bleeding/bruising Integumentary: No rash Allergic / Immunologic: No environmental allergies, No seasonal allergies Social History Smoking Status: Never smoker Drug Use: none Marital Status: Housing Status: lives alone Occupation Status: retired Allergies Coded Allergies: Cephalexin (Verified Allergy, Severe, HIVES, 12/11/16) Big puffy gilliam under her eyes Sulfamethoxazole w/Trimethoprim (Verified Allergy, Unknown, ITCHY, 12/10/16) Current Inpatient Medications Current Inpatient Medications Medications (Trade) Dose Ordered Sig/Marlen Route Start Time Stop Time Status Last Admin Dose Admin Ketorolac Tromethamine (Toradol Inj) 15 mg Q6H PRN IV. 12/11/16 03:45 12/16/16 03:44 12/12/16 08:04 15 MG Morphine Sulfate (MoRPHine SULFATE INJ) 1 mg Q4 PRN IV 12/11/16 03:45 12/25/16 03:44 Heparin Sodium (Porcine) (Heparin Sq 5000 Unit/0.5ml) 5,000 unit Q8 SQ 12/11/16 06:00 01/10/17 05:59 12/12/16 13:46 5,000 UNIT Acetaminophen (Tylenol Tab) 650 mg Q4H PRN PO 12/11/16 03:45 01/10/17 03:44 Al Hydrox/Mg Hydrox/Simethicone (Maalox Max Susp) 15 ml Q4H PRN PO 12/11/16 03:45 01/10/17 03:44 Magnesium Hydroxide (Milk Of Magnesia Susp) 30 ml Q12H PRN PO 12/11/16 03:45 01/10/17 03:44 Ondansetron HCl (Zofran Inj) 4 mg Q6H PRN IV 12/11/16 03:45 01/10/17 03:44 12/11/16 04:30 4 MG Polyethylene (Miralax Powder Packet) 17 gm DAILY PRN PO 12/11/16 03:45 01/10/17 03:44 Brimonidine Tartrate (Alphagan 0.2% Soln) 1 drops BID OPB 12/11/16 09:00 01/10/17 08:59 12/12/16 08:14 1 DROPS Lisinopril (Zestril Tab) 5 mg DAILY PO 12/11/16 09:00 01/10/17 08:59 12/12/16 08:16 5 MG Lorazepam (Ativan Tab) 0.5 mg DAILY PRN PO 12/11/16 03:45 01/10/17 03:44 Zolpidem Tartrate (Ambien Tab) 5 mg HS PO 12/11/16 21:00 01/10/17 20:59 12/11/16 21:23 5 MG Sodium Chloride 1,000 ml @ 80 mls/hr [id number] IV 12/11/16 05:15 8/9/17 05:14 12/12/16 06:02 80 MLS/HR Prednisolone Acetate (Pred Forte 1% Oph Susp) 1 drops DAILY OPL 12/11/16 09:00 01/10/17 08:59 12/12/16 08:15 1 DROPS Doxycycline Hyclate (Vibramycin Cap) 100 mg BID PO 12/11/16 13:30 12/16/16 13:29 12/12/16 08:16 100 MG Oxycodone/ Acetaminophen (Percocet 5-325mg Tab) 1 tab Q6H PRN PO 12/11/16 12:30 12/25/16 12:29 Non-Formulary Medication (Non-Formulary Patient'S Own Med) 1 ea TIDM PO 12/12/16 07:30 01/11/17 07:29 12/12/16 11:53 1 EA Prednisolone Acetate (Pred Mild 0.12%) 1 ml DAILY OPL 12/12/16 09:00 01/11/17 08:59 12/12/16 08:15 1 ML Physical Exam Vital Signs (Past 24 Hrs): Date Time Temp Pulse Resp B/P (MAP) Pulse Ox O2 Delivery O2 Flow Rate FiO2 12/12/16 12:00 Room Air 12/12/16 11:06 36.7 67 20 120/63 (82) 94 12/12/16 08:01 36.8 89 20 159/76 (103) 97 Room Air 12/12/16 08:00 Room Air 12/12/16 04:11 36.7 87 22 155/74 (101) 96 Room Air 12/12/16 04:00 Room Air 12/12/16 00:00 Room Air 12/11/16 23:26 37.2 88 19 132/74 (93) 92 Room Air 12/11/16 20:00 Room Air 12/11/16 19:38 36.8 92 18 136/75 (95) 93 Room Air 12/11/16 16:05 Room Air 12/11/16 15:57 36.7 93 18 117/71 (86) 98 Room Air Physical Exam:, appearance elderly and mildly slow in responding to questiona Ears, Nose, Mouth and Throat: mucous membranes moist, no injection and skin normal, eyes normal Cardiovascular: normal S-1 and S-2 and regular rate and rhythm Respiratory: clear to auscultation (CTA) and no rales, ronchi or wheeze Musculoskeletal: no peripheral edema and good distal pulses multiple bruises over extremities and feet with a very tender right great toe pain on attempted movement of hips and pelvis due to fracture Skin: thin with bruising as above Eyes: extraocular muscles intact (EOMI) and pupils equal, round and reactive to light (PERRL) fundi poorly seen NEUROLOGIC EXAMINATION: Mental status: Alert and interactive Oriented to place but off as to exact date and day of week knows year and month vague recall of events leading to fall Oriented to person Speech fluent with no evidence of aphasia Cranial Nerves Normal findings for Cranial Nerves II - XII Reflexes: Deep tendon reflexes were symmetrical and graded 1/5. Plantar responses were flexor. Sensory: no sensory deficits to testing of vibration and temperature over legs feet and hands Coordination: on [id number] intact cannot test heel to daily or gait due to pelvic fracture and nonweight bearing status Motor: Negative for pronator drift of out stretched arms with eyes closed. Strength: Normal - 5/5 all extremities allowing for diminished effort in hip flexors and quads due to pain in pelvis Laboratory Results Past 24 Hours: 12/12/16 07:30 12/12/16 07:30 Test 12/12/16 07:30 Red Blood Count 3.90 M/uL (4.2-5.4) Mean Corpuscular Volume 86.9 fL (80-100) Mean Corpuscular Hemoglobin 28.5 pg (25-34) Mean Corpuscular Hemoglobin Concent 32.7 g/dl (32-36) RDW Standard Deviation 40.5 fL (36.4-46.3) RDW Coefficient of Variation 12.6 % (11.5-14.5) Mean Platelet Volume 10.1 fL (7.4-10.4) Anion Gap 6.0 mmol/L (3-11) Est Creatinine Clear Calc Drug Dose 48.4 ml/min Estimated GFR () 96.0 Estimated GFR (Non- 82.8 BUN/Creatinine Ratio 21.6 (10-20) Calcium Level 8.5 mg/dl (8.5-10.1) Magnesium Level 2.0 mg/dl (1.8-2.4) Total Creatine Kinase 151 U/L (26-192) Imaging CT OF THE HEAD WITHOUT CONTRAST CLINICAL HISTORY: Fall. Altered mental status. COMPARISON STUDY: Head CT January 06, 2016. TECHNIQUE: Helical axial images of the head were obtained without IV contrast. Automated exposure control was utilized for the study. FINDINGS: No acute intracranial hemorrhage, midline shift or mass effect is present. Ventricular system is stable. Basilar cisterns are patent. There are no extra-axial collections. White matter hypodensity suggests small vessel disease. A 1.3 cm periventricular hypodensity within the left frontal lobe shown on axial image 18 is new since exam of January 06, 2016. There is no calvarial fracture. IMPRESSION: 1. No acute intracranial hemorrhage or mass effect. 2. No calvarial fracture. 3. 1.3 cm periventricular hypodensity within the left frontal lobe which is new since head CT of January 06, 2016. This is age indeterminate but likely subacute to chronic. Electronically signed by: Abhinav Manley M.D. 12/11/2016 6:59 AM Dictated Date/Time: 12/11/2016 6:57 AM CLINICAL HISTORY: Altered mental status. Fall. COMPARISON STUDY: No previous studies for comparison. TECHNIQUE: Helical axial images of the cervical spine were obtained without IV contrast. Sagittal and coronal reconstructions were viewed. FINDINGS: No acute cervical spine fracture is identified. There is mild anterolisthesis of C4 on C5. This is likely degenerative. There is no acute fracture. There is marked multilevel disc space narrowing with osteophytosis. There is severe multilevel facet arthrosis. There is slight reversal of the normal cervical lordosis. IMPRESSION: 1. No acute cervical spine fracture or subluxation. 2. Severe multilevel degenerative disc disease and facet arthrosis. Electronically signed by: Abhinav Manley M.D. 12/11/2016 7:02 AM Dictated Date/Time: 12/11/2016 7:00 AM Impression Frail 86 year old woman post fall with minor closed head trauma rhabdo, pelvic fracture and toe fracture with prior chronic illnesses as above listed now with some sundowning due to trauma, meds and possible mild underllying vascular congnitive impairment who has a currently asymptomatic incidental but apparently "New" left frontal hpodensity of uncertain cause differential includes silent cva but a mass or single metastatic lesion needs considered Plan As discussed with Dr Davis we will go with an mri with contrast here to define the lesion and to more adequately assess the degree of leukoencephalopathy Would try to minimize pain meds as these may be partially driving the nocturnal confusion and delerium I willl check back tomorrow but for now see no need for other neurological testing
[2016-12-12 15:52] VITALS: BP 143/78; PULSE 71; TEMP 36.5; O2SAT 98
[2016-12-12] MEDS: POLYETHYLENE (MIRALAX) 17 GM PACK PO PRN (18:04)
--- NOTE | 2016-12-12 19:17 | Progress Note ---
Internal Med Progress Note Date of Service: Dec 12, 2016. Provider Documentation: SUBJECTIVE: The patient was seen and examined Complains of pain on any movement Recent history of more confusion and fall OBJECTIVE: Vital Signs-as noted below Exam: General-Moderate distress at rest Eyes-normal ENT-normal Neck-supple Lungs-decreased breath sound bilaterally No crackles Heart-Regular,no murmur Abdomen-Benign,no masses Extremities-No edema Nay movement of the lower extremities produce pain Neuro-AA Occasional confusion Lab data as noted below. ASSESSMENT & PLAN: S/P Fall with Right ischiopubic ring/Left pubic bone/Right sacral ala)/Acetabular Right 1st toe proximal phalanx fractures- Unclear etiology as patient found on floor by relative H/O Recurrent falls with generalized bruising -Pain mx- controlled -Ortho consulted on admission and reconsulted -PT/OT. Will need rehab Physical deconditioning, likely age related , progressively worsening -No signs of infection noted at this point -CT of the Head-Subacute /chronic stroke -Neurology consulted -MRI of the Head -PT/OT RLE Cellulitis S/P Trauma to right daily, Was being treated with Keflex since 12/08/16. Had a reaction to Keflex so was changed to Augmentin by PCP -Will change to Doxycycline x 5 more days -No concerning signs of worsening of cellulitis- improving HTN continue Lisinopril Controlled DVT ppx subq heparin DISPOSITION PT/OT Likely to need Rehab FULL CODE Discussed with The Daughter Vital Signs: Date Time Temp Pulse Resp B/P (MAP) Pulse Ox O2 Delivery O2 Flow Rate FiO2 12/12/16 16:00 Room Air 12/12/16 15:52 36.5 71 16 143/78 (99) 98 Room Air 12/12/16 12:00 Room Air 12/12/16 11:06 36.7 67 20 120/63 (82) 94 12/12/16 08:01 36.8 89 20 159/76 (103) 97 Room Air 12/12/16 08:00 Room Air 12/12/16 04:11 36.7 87 22 155/74 (101) 96 Room Air 12/12/16 04:00 Room Air 12/12/16 00:00 Room Air 12/11/16 23:26 37.2 88 19 132/74 (93) 92 Room Air 12/11/16 20:00 Room Air 12/11/16 19:38 36.8 92 18 136/75 (95) 93 Room Air Lab Results: Results Past 24 Hours Test 12/12/16 07:30 Range/Units White Blood Count 7.85 4.8-10.8 K/uL Red Blood Count 3.90 4.2-5.4 M/uL Hemoglobin 11.1 12.0-16.0 g/dL Hematocrit 33.9 37-47 % Mean Corpuscular Volume 86.9 80-100 fL Mean Corpuscular Hemoglobin 28.5 25-34 pg Mean Corpuscular Hemoglobin Concent 32.7 32-36 g/dl RDW Standard Deviation 40.5 36.4-46.3 fL RDW Coefficient of Variation 12.6 11.5-14.5 % Platelet Count 174 130-400 K/uL Mean Platelet Volume 10.1 7.4-10.4 fL Sodium Level 142 136-145 mmol/L Potassium Level 4.0 3.5-5.1 mmol/L Chloride Level 111 98-107 mmol/L Carbon Dioxide Level 25 21-32 mmol/L Anion Gap 6.0 3-11 mmol/L Blood Urea Nitrogen 13 7-18 mg/dl Creatinine 0.62 0.60-1.20 mg/dl Est Creatinine Clear Calc Drug Dose 48.4 ml/min Estimated GFR () 96.0 Estimated GFR (Non- 82.8 BUN/Creatinine Ratio 21.6 10-20 Random Glucose 80 70-99 mg/dl Calcium Level 8.5 8.5-10.1 mg/dl Magnesium Level 2.0 1.8-2.4 mg/dl Total Creatine Kinase 151 26-192 U/L
--- NOTE | 2016-12-12 19:37 | Orthopedic Progress Note ---
Orthopedic Progress Note Date of Service Dec 12, 2016. Subjective Reports: complaints Additional Notes: Complaints of appropriate amount of pain Objective hip located (hip exam shows very minimal bruising and ecchymosis she has supple motion of the right hip. She has no open injuries. I did not detect any gross abnormality in the hip) Date Time Temp Pulse Resp B/P (MAP) Pulse Ox O2 Delivery O2 Flow Rate FiO2 12/12/16 16:00 Room Air 12/12/16 15:52 36.5 71 16 143/78 (99) 98 Room Air 12/12/16 12:00 Room Air 12/12/16 11:06 36.7 67 20 120/63 (82) 94 12/12/16 08:01 36.8 89 20 159/76 (103) 97 Room Air 12/12/16 08:00 Room Air 12/12/16 04:11 36.7 87 22 155/74 (101) 96 Room Air 12/12/16 04:00 Room Air 12/12/16 00:00 Room Air 12/11/16 23:26 37.2 88 19 132/74 (93) 92 Room Air 12/11/16 20:00 Room Air 12/11/16 19:38 36.8 92 18 136/75 (95) 93 Room Air Laboratory Results 24 Hours: Test 12/12/16 07:30 Hematocrit 33.9 % Hemoglobin 11.1 g/dL Assessment & Plan Assessment: Status post pelvic fractures Plan: Orthopedics is reconsult due to the family noting an abnormal appearance of the right hip region. I have examined the patient I do not see any significant abnormality in the hip. Exam is consistent with pelvic fractures and some mild swelling due to pelvic fractures. Toe fracture is also noted on the proximal phalanx of the great toe. She may be weightbearing as tolerated and we will continue the current plan. No further orthopedic treatment needed.
[2016-12-12 20:02] VITALS: BP 118/70; PULSE 88; TEMP 37; O2SAT 95
[2016-12-12] MEDS ORDERED: GADAVIST IV PRN (21:30)
[2016-12-12] MEDS: DOCUSATE SODIUM 100 MG CAP PO SCH (21:58)
[2016-12-12] MEDS: ZOLPIDEM TARTRATE 5 MG TAB PO SCH (21:58)
--- NOTE | 2016-12-12 22:04 | DIAGNOSTIC IMAGING REPORT ---
MRI OF THE BRAIN WITHOUT AND WITH IV CONTRAST CLINICAL HISTORY: Fall. COMPARISON STUDY: MRI of the brain April [address] December 11, 2016. TECHNIQUE: Utilizing a 1.5 Debbie magnet and dedicated coil, multiplanar, multiecho imaging of the brain was performed pre and postcontrast administration. IV administration of 5.5 mL of Gadavist contrast was uneventful. FINDINGS: There are several foci of restricted diffusion within the periventricular left frontal lobe within the distribution of the left anterior cerebral artery. The largest area of restricted diffusion corresponds to the abnormality shown on head CT of December 11, 2016 and measures 1.7 cm. There is no hemorrhage or mass effect. Ventricular system is stable. Basilar cisterns are patent. There are no extra-axial collections. There is no intracranial mass or pathologic enhancement. Numerous white matter T2 hyperintense foci suggest small vessel disease. Calvarial signal is maintained. Orbits are unremarkable. IMPRESSION: Several foci of acute to subacute infarction within the periventricular left frontal lobe within the distribution of the left anterior cerebral artery. These measure up to 1.7 cm and correspond to the abnormality on head CT of December 11, 2016. No mass effect or hemorrhage. Electronically signed by: Abhinav Manlye M.D. 12/12/2016 10:02 PM Dictated Date/Time: 12/12/2016 9:55 PM
[2016-12-12] MEDS ORDERED: NURSING VERBAL MED ORDER ONE (22:14)
--- NOTE | 2016-12-12 22:18 | Progress Note ---
Progress Note Date of Service Dec 12, 2016. Progress Note 12/12 10:17pm-notified by nurse Cassi about MRI findings. Pt is alert and oriented despite confusion yesterday. Mutliple areas of infarct present on MRI. Full dose aspirin was started for secondary prophylaxis. Notes regarding concern for medication induced confusion so recommending to hold Ambien until workup is more complete. Tyrone, DO
[2016-12-12] MEDS: ASPIRIN 325 MG ECTAB PO SCH (22:47)
[2016-12-12 23:22] VITALS: BP 127/71; PULSE 84; TEMP 36.7; O2SAT 97
[2016-12-13] VITALS (7 sets, daily range): BP systolic 123–165; BP diastolic 61–84; PULSE 69–80; TEMP 36.5–36.8; O2SAT 97–99
[2016-12-13] MEDS: HEPARIN SOD 5000 UNIT/0.5 ML CARP SQ SCH ×3 (05:52→21:50)
[2016-12-13] MEDS: SODIUM CHLORIDE 0.9% 1000ML 1,000 ML IV SCH ×2 (05:53→20:04)
--- NOTE | 2016-12-13 07:02 | Neurology Progress Notes ---
Neurology Progress Note Date of Service Dec 13, 2016. Vaibhav Leggett remains intermittently confused but is off pain meds is sitting up and conversing on the phone and recalls seeing me from yesterday overall improved Objective Date Time Temp Pulse Resp B/P (MAP) Pulse Ox O2 Delivery O2 Flow Rate FiO2 12/13/16 04:00 Room Air 12/13/16 03:37 36.6 74 16 146/77 (100) 97 Room Air 12/13/16 00:00 Room Air 12/12/16 23:22 36.7 84 21 127/71 (89) 97 Room Air 12/12/16 20:20 Room Air 12/12/16 20:02 37.0 88 16 118/70 (86) 95 Room Air 12/12/16 16:00 Room Air 12/12/16 15:52 36.5 71 16 143/78 (99) 98 Room Air 12/12/16 12:00 Room Air 12/12/16 11:06 36.7 67 20 120/63 (82) 94 12/12/16 08:01 36.8 89 20 159/76 (103) 97 Room Air 12/12/16 08:00 Room Air Last 24 Hours Test 12/12/16 07:30 White Blood Count 7.85 K/uL Red Blood Count 3.90 M/uL Hemoglobin 11.1 g/dL Hematocrit 33.9 % Mean Corpuscular Volume 86.9 fL Mean Corpuscular Hemoglobin 28.5 pg Mean Corpuscular Hemoglobin Concent 32.7 g/dl RDW Standard Deviation 40.5 fL RDW Coefficient of Variation 12.6 % Platelet Count 174 K/uL Mean Platelet Volume 10.1 fL Sodium Level 142 mmol/L Potassium Level 4.0 mmol/L Chloride Level 111 mmol/L Carbon Dioxide Level 25 mmol/L Anion Gap 6.0 mmol/L Blood Urea Nitrogen 13 mg/dl Creatinine 0.62 mg/dl Est Creatinine Clear Calc Drug Dose 48.4 ml/min Estimated GFR () 96.0 Estimated GFR (Non- 82.8 BUN/Creatinine Ratio 21.6 Random Glucose 80 mg/dl Calcium Level 8.5 mg/dl Magnesium Level 2.0 mg/dl Total Creatine Kinase 151 U/L MRI OF THE BRAIN WITHOUT AND WITH IV CONTRAST CLINICAL HISTORY: Fall. COMPARISON STUDY: MRI of the brain April [address] December 11, 2016. TECHNIQUE: Utilizing a 1.5 Debbie magnet and dedicated coil, multiplanar, multiecho imaging of the brain was performed pre and postcontrast administration. IV administration of 5.5 mL of Gadavist contrast was uneventful. FINDINGS: There are several foci of restricted diffusion within the periventricular left frontal lobe within the distribution of the left anterior cerebral artery. The largest area of restricted diffusion corresponds to the abnormality shown on head CT of December 11, 2016 and measures 1.7 cm. There is no hemorrhage or mass effect. Ventricular system is stable. Basilar cisterns are patent. There are no extra-axial collections. There is no intracranial mass or pathologic enhancement. Numerous white matter T2 hyperintense foci suggest small vessel disease. Calvarial signal is maintained. Orbits are unremarkable. IMPRESSION: Several foci of acute to subacute infarction within the periventricular left frontal lobe within the distribution of the left anterior cerebral artery. These measure up to 1.7 cm and correspond to the abnormality on head CT of December 11, 2016. No mass effect or hemorrhage. Electronically signed by: Abhinav Manley M.D. 12/12/2016 10:02 PM Dictated Date/Time: 12/12/2016 9:55 PM Exam: Alert superficially oreinted and without any evidence for cranial nerve dysfunction hemiparesis etc Impression / Plan Frail 86 year old woman post fall with minor closed head trauma rhabdo, pelvic fracture and toe fracture with prior chronic illnesses as above listed now with some sundowning due to trauma, meds and possible mild underllying vascular congnitive impairment who has a currently asymptomatic incidental but apparently "New" left frontal hpodensity of uncertain cause differential includes silent cva but a mass or single metastatic lesion needs considered Today the exam remains nonfocal and the patient looks overall brighter and more alert Imaging has shown subacute to more chronic ischemic events corresponding to the findings on ct and duplex shows no source of clot in the carotids echo is normal and there is no evidence on monitor for atrial fib These silent strokes may reflect intracranial disease or silent paroxysmal atrial fib or clots from the aorta in all but the a fib the rx would be antiplatet drugs for now doubling the aspirin is reasonable but the current practice here at [facility] would b to add plavix to the low dose asa and then switch back to single agent antiplatet rx in three months with perhaps an outpatient zio patch/cardionet I will be back tomorrow for a reevaluation
[2016-12-13] MEDS: ACIDOPHILUS PEARLS PO SCH ×3 (07:52→16:26)
[2016-12-13] MEDS: BRIMONIDINE TARTRATE 0.2% 5ML OPB SCH (08:53)
[2016-12-13] MEDS: LISINOPRIL 5 MG TAB PO SCH (08:54)
[2016-12-13] MEDS: PREDNISOLONE ACETATE 0.12% OPL SCH (08:54)
[2016-12-13] MEDS: PrednisoLONE ACET 1% OP SUSP 5 ML BTL OPL SCH (08:54)
[2016-12-13] MEDS: DOXYCYCLINE HYCLATE 100 MG CAP PO SCH (08:54)
[2016-12-13] MEDS: DOCUSATE SODIUM 100 MG CAP PO SCH (08:54)
[2016-12-13 10:46] LABS: HEMATOCRIT 30.8 % (37-47); MEAN CELL VOLUME 87.7 fL (80-100); MEAN CORPUSCULAR HEMOGLOBIN 28.8 pg (25-34); MEAN CORPUSCULAR HGB CONC 32.8 g/dl (32-36); MEAN PLATELET VOLUME 10.3 fL (7.4-10.4); PLATELET COUNT 174 K/uL (130-400); RED BLOOD COUNT 3.51 M/uL (4.2-5.4); WHITE BLOOD COUNT 6.24 K/uL (4.8-10.8)
[2016-12-13 11:07] LABS: BUN/CREATININE RATIO 29.2 (10-20); CALCIUM 8.1 mg/dl (8.5-10.1); CREATININE 0.5 mg/dl (0.60-1.20)
[2016-12-13 11:17] LABS: THYROID STIMULATING HORMONE 0.415 uIu/ml (0.300-4.500)
--- NOTE | 2016-12-13 11:53 | DIAGNOSTIC IMAGING REPORT ---
ULTRASOUND OF THE CAROTID ARTERIES CLINICAL HISTORY: Stroke. COMPARISON STUDY: No priors. TECHNIQUE: Real-time, grayscale, and color Doppler sonography of the carotid arteries is performed. Images are reviewed in the transverse and longitudinal planes. FINDINGS: Blood pressure in the right arm measures 140/60 and blood pressure in the left arm measures 150/65. The carotid arteries are patent bilaterally and demonstrate antegrade flow. There is no signal atherosclerotic plaque seen. Normal doppler arterial waveforms are seen throughout. Velocity measurements are listed below. Common carotid peak systolic velocity (cm/sec): RIGHT: 76 LEFT: 80 ICA proximal peak systolic velocity (cm/sec): RIGHT: 62 LEFT: 94 ICA mid peak systolic velocity (cm/sec): RIGHT: 99 LEFT: 73 ICA distal peak systolic velocity (cm/sec): RIGHT: 90 LEFT: 85 ICA/CC peak systolic ratio: RIGHT: 1.3 LEFT: 1.0 Antegrade flow was shown in the vertebral arteries. The external carotid arteries are patent. IMPRESSION: 1. There is no sonographic evidence of hemodynamically significant stenosis in the right or left carotid arterial system. 2. Antegrade flow is shown in the vertebral arteries. Electronically signed by: Wenceslao Millan M.D. 12/13/2016 11:51 AM Dictated Date/Time: 12/13/2016 11:50 AM
--- NOTE | 2016-12-13 18:46 | Progress Note ---
Internal Med Progress Note Date of Service: Dec 13, 2016. Provider Documentation: SUBJECTIVE: The patient was seen and examined Complains of pain on any movement Recent history of more confusion and fall No history suggestive of TIA recently Complains of dizziness at times OBJECTIVE: Vital Signs-as noted below Exam: General-Moderate distress at rest Eyes-normal ENT-normal Neck-supple Lungs-decreased breath sound bilaterally No crackles Heart-Regular,no murmur Abdomen-Benign,no masses Extremities-No edema Nay movement of the lower extremities produce pain Neuro-AA Occasional confusion Lab data as noted below. ASSESSMENT & PLAN: S/P Fall with Right ischiopubic ring/Left pubic bone/Right sacral ala)/Acetabular Right 1st toe proximal phalanx fractures- Unclear etiology as patient found on floor by relative H/O Recurrent falls with generalized bruising -Pain mx- controlled -Ortho consulted on admission and reconsulted -PT/OT. Will need rehab Subacute Left Periventricular Frontal Stroke Not sure whether Thrombotic and or Emboli Carotis US,ECHO -negative for any source Has been put on Full dose of Aspirin Appreciate Neurology input Physical deconditioning, likely age related , progressively worsening -No signs of infection noted at this point -CT of the Head-Subacute /chronic stroke -Neurology consulted -MRI of the Head -PT/OT -Dizziness could be multifactorial -fall,infection,stroke RLE Cellulitis S/P Trauma to right daily, Was being treated with Keflex since 12/08/16. Had a reaction to Keflex so was changed to Augmentin by PCP -Will change to Doxycycline x 5 more days -No concerning signs of worsening of cellulitis- improving HTN continue Lisinopril Controlled DVT ppx subq heparin DISPOSITION PT/OT Likely to need Rehab FULL CODE Discussed with [facility] again today Vital Signs: Date Time Temp Pulse Resp B/P (MAP) Pulse Ox O2 Delivery O2 Flow Rate FiO2 12/13/16 16:00 Room Air 12/13/16 15:29 36.8 69 16 139/79 (99) 97 Room Air 12/13/16 12:00 Room Air 12/13/16 11:09 36.5 80 18 123/61 (81) 97 Room Air 12/13/16 08:00 Room Air 12/13/16 07:11 36.7 74 18 136/69 (91) 97 Room Air 12/13/16 04:00 Room Air 12/13/16 03:37 36.6 74 16 146/77 (100) 97 Room Air 12/13/16 00:00 Room Air 12/12/16 23:22 36.7 84 21 127/71 (89) 97 Room Air 12/12/16 20:20 Room Air 12/12/16 20:02 37.0 88 16 118/70 (86) 95 Room Air Lab Results: Results Past 24 Hours Test 12/13/16 10:16 Range/Units White Blood Count 6.24 4.8-10.8 K/uL Red Blood Count 3.51 4.2-5.4 M/uL Hemoglobin 10.1 12.0-16.0 g/dL Hematocrit 30.8 37-47 % Mean Corpuscular Volume 87.7 80-100 fL Mean Corpuscular Hemoglobin 28.8 25-34 pg Mean Corpuscular Hemoglobin Concent 32.8 32-36 g/dl RDW Standard Deviation 41.2 36.4-46.3 fL RDW Coefficient of Variation 12.8 11.5-14.5 % Platelet Count 174 130-400 K/uL Mean Platelet Volume 10.3 7.4-10.4 fL Sodium Level 144 136-145 mmol/L Potassium Level 4.0 3.5-5.1 mmol/L Chloride Level 113 98-107 mmol/L Carbon Dioxide Level 26 21-32 mmol/L Anion Gap 5.0 3-11 mmol/L Blood Urea Nitrogen 15 7-18 mg/dl Creatinine 0.50 0.60-1.20 mg/dl Est Creatinine Clear Calc Drug Dose 61.4 ml/min Estimated GFR () 103.0 Estimated GFR (Non- 88.9 BUN/Creatinine Ratio 29.2 10-20 Random Glucose 172 70-99 mg/dl Calcium Level 8.1 8.5-10.1 mg/dl Vitamin B12 Level 379 211-911 pg/mL Folate 18.77 >5.38 ng/mL Thyroid Stimulating Hormone (TSH) 0.415 0.300-4.500 uIu/ml
[2016-12-13] MEDS: KETOROLAC TROMETHAMINE 15 MG/ML VIAL IV. PRN (19:47)
[2016-12-13] MEDS: ASPIRIN 325 MG ECTAB PO SCH (21:46)
[2016-12-14] MEDS: HEPARIN SOD 5000 UNIT/0.5 ML CARP SQ SCH ×3 (06:06→20:56)
[2016-12-14] MEDS: KETOROLAC TROMETHAMINE 15 MG/ML VIAL IV. PRN ×3 (06:11→22:01)
[2016-12-14 07:27] VITALS: BP 134/74; PULSE 74; TEMP 36.8; O2SAT 94
[2016-12-14] MEDS: LISINOPRIL 5 MG TAB PO SCH (08:09)
[2016-12-14] MEDS: SODIUM CHLORIDE 0.9% 1000ML 1,000 ML IV SCH ×2 (08:09→20:47)
[2016-12-14] MEDS: DOXYCYCLINE HYCLATE 100 MG CAP PO SCH ×2 (08:10→20:49)
[2016-12-14] MEDS: DOCUSATE SODIUM 100 MG CAP PO SCH ×2 (08:10→20:49)
[2016-12-14] MEDS: PANTOprazole SOD 40 MG TAB PO SCH (08:10)
[2016-12-14] MEDS: ACIDOPHILUS PEARLS PO SCH ×3 (08:10→16:55)
[2016-12-14] MEDS: PrednisoLONE ACET 1% OP SUSP 5 ML BTL OPL SCH (08:11)
[2016-12-14] MEDS: BRIMONIDINE TARTRATE 0.2% 5ML OPB SCH ×2 (08:11→20:49)
[2016-12-14] MEDS: PREDNISOLONE ACETATE 0.12% OPL SCH (08:12)
[2016-12-14] MEDS: POLYETHYLENE (MIRALAX) 17 GM PACK PO PRN (13:03)
[2016-12-14 16:05] VITALS: BP 208/83; PULSE 83; TEMP 36.7; O2SAT 97
[2016-12-14] MEDS ORDERED: LORAZEPAM 0.5 MG TAB PO ONE (16:15)
[2016-12-14] MEDS ORDERED: CLONIDINE HCL 0.1 MG TAB PO PRN (16:15)
[2016-12-14] MEDS ORDERED: BISACODYL 10 MG SUPP PR STA (16:41)
[2016-12-14] MEDS ORDERED: CLONIDINE HCL 0.1 MG TAB PO ONE (16:45)
[2016-12-14 16:57] VITALS: BP 176/94
--- NOTE | 2016-12-14 17:09 | Progress Note ---
Internal Med Progress Note Date of Service: Dec 14, 2016. Provider Documentation: SUBJECTIVE: The patient was seen and examined Complains of pain on any movement Recent history of more confusion and fall No history suggestive of TIA recently Complains of dizziness at times Much better this morning Has had Very High BP this afternoon-likely related to anxiety and Constopation OBJECTIVE: Vital Signs-as noted below Exam: General-Moderate distress at rest Eyes-normal ENT-normal Neck-supple Lungs-decreased breath sound bilaterally No crackles Heart-Regular,no murmur Abdomen-Benign,no masses Extremities-No edema Nay movement of the lower extremities produce pain Neuro-AA Occasional confusion Lab data as noted below. ASSESSMENT & PLAN: S/P Fall with Right ischiopubic ring/Left pubic bone/Right sacral ala)/Acetabular Right 1st toe proximal phalanx fractures- Unclear etiology as patient found on floor by relative H/O Recurrent falls with generalized bruising -Pain mx- controlled -Ortho consulted on admission and reconsulted -PT/OT. Will need rehab -awaiting to be transferred Constipation Bowel not moved for the last few days Will tri Suppository.MOM and Enema Subacute Left Periventricular Frontal Stroke Not sure whether Thrombotic and or Emboli Carotis US,ECHO -negative for any source Has been put on Full dose of Aspirin Appreciate Neurology input Was not taking any Aspirin before Dose of aspirin has been changed to 81 mg to decrease side effects Protonix added Physical deconditioning, likely age related , progressively worsening -No signs of infection noted at this point -CT of the Head-Subacute /chronic stroke -Neurology consulted -MRI of the Head -PT/OT -Dizziness could be multifactorial -fall,infection,stroke RLE Cellulitis S/P Trauma to right daily, Was being treated with Keflex since 12/08/16. Had a reaction to Keflex so was changed to Augmentin by PCP -Will change to Doxycycline x 5 more days -No concerning signs of worsening of cellulitis- improving HTN continue Lisinopril Controlled DVT ppx subq heparin DISPOSITION PT/OT Likely to need Rehab FULL CODE Discussed with [facility] again today Vital Signs: Date Time Temp Pulse Resp B/P (MAP) Pulse Ox O2 Delivery O2 Flow Rate FiO2 12/14/16 16:57 176/94 (121) 12/14/16 16:05 36.7 83 18 208/83 (124) 97 Room Air 12/14/16 16:00 Room Air 12/14/16 08:00 Room Air 12/14/16 07:27 36.8 74 17 134/74 (94) 94 Room Air 12/14/16 00:00 Room Air 12/13/16 23:54 36.8 78 18 165/84 (111) 97 Room Air 12/13/16 20:05 36.8 75 18 145/77 (99) 99 Room Air 12/13/16 20:00 Room Air 12/13/16 19:54 36.8 69 16 97
[2016-12-14 19:46] VITALS: BP 126/72; PULSE 84
[2016-12-14] MEDS: ZOLPIDEM TARTRATE 5 MG TAB PO SCH (20:50)
[2016-12-14] MEDS ORDERED: ASPIRIN 81 MG ECTAB PO SCH (21:00)
[2016-12-14] MEDS ORDERED: ASPIRIN 325 MG ECTAB PO SCH (22:00)
[2016-12-14 23:51] VITALS: BP 136/72; PULSE 74; TEMP 36.8; O2SAT 97
[2016-12-15] MEDS: HEPARIN SOD 5000 UNIT/0.5 ML CARP SQ SCH ×2 (06:11→14:00)
[2016-12-15 07:31] VITALS: BP 148/73; PULSE 82; TEMP 36.8; O2SAT 96
[2016-12-15] MEDS: BRIMONIDINE TARTRATE 0.2% 5ML OPB SCH (08:44)
[2016-12-15] MEDS: PrednisoLONE ACET 1% OP SUSP 5 ML BTL OPL SCH (08:44)
[2016-12-15] MEDS: PREDNISOLONE ACETATE 0.12% OPL SCH (08:45)
[2016-12-15] MEDS: PANTOprazole SOD 40 MG TAB PO SCH (08:47)
[2016-12-15] MEDS: ACIDOPHILUS PEARLS PO SCH ×3 (08:47→17:39)
[2016-12-15] MEDS: LISINOPRIL 5 MG TAB PO SCH (08:47)
[2016-12-15] MEDS: DOCUSATE SODIUM 100 MG CAP PO SCH (08:47)
[2016-12-15] MEDS: DOXYCYCLINE HYCLATE 100 MG CAP PO SCH (08:47)
[2016-12-15] MEDS: SODIUM CHLORIDE 0.9% 1000ML 1,000 ML IV SCH (08:51)
--- NOTE | 2016-12-15 10:50 | Progress Note ---
Internal Med Progress Note Date of Service: Dec 15, 2016. Provider Documentation: SUBJECTIVE: The patient was seen and examined Complains of pain on any movement Recent history of more confusion and fall No history suggestive of TIA recently Complains of dizziness at times Much better this morning Has had Very High BP this afternoon-likely related to anxiety and Constipation Clinically a lot better today Ready to be discharged OBJECTIVE: Vital Signs-as noted below Exam: General-Moderate distress at rest Eyes-normal ENT-normal Neck-supple Lungs-decreased breath sound bilaterally No crackles Heart-Regular,no murmur Abdomen-Benign,no masses Extremities-No edema Any movement of the lower extremities produce pain -much diminished Right big toe improved a lot Neuro-AA Occasional confusion Lab data as noted below. ASSESSMENT & PLAN: S/P Fall with Right ischiopubic ring/Left pubic bone/Right sacral ala)/Acetabular Right 1st toe proximal phalanx fractures- Unclear etiology as patient found on floor by relative H/O Recurrent falls with generalized bruising -Pain mx- controlled -Ortho consulted on admission and reconsulted -PT/OT. Will need rehab -Discharge today to SNF Constipation Bowel not moved for the last few days Will tri Suppository.MOM and Enema Resolved Subacute Left Periventricular Frontal Stroke Not sure whether Thrombotic and or Emboli Carotis US,ECHO -negative for any source Has been put on Full dose of Aspirin Appreciate Neurology input Was not taking any Aspirin before Dose of aspirin has been changed to 81 mg to decrease side effects Protonix added Physical deconditioning, likely age related , progressively worsening -No signs of infection noted at this point -CT of the Head-Subacute /chronic stroke -Neurology consulted -MRI of the Head -PT/OT -Dizziness could be multifactorial -fall,infection,stroke -Advised to take time before any physical activity RLE Cellulitis S/P Trauma to right daily, Was being treated with Keflex since 12/08/16. Had a reaction to Keflex so was changed to Augmentin by PCP -Will change to Doxycycline x 5 more days -No concerning signs of worsening of cellulitis- improving HTN continue Lisinopril Controlled DVT ppx subq heparin DISPOSITION PT/OT Likely to need Rehab FULL CODE [facility]iscussed with [facility] Discharge today to SNF Vital Signs: Date Time Temp Pulse Resp B/P (MAP) Pulse Ox O2 Delivery O2 Flow Rate FiO2 12/15/16 08:30 Room Air 12/15/16 07:31 36.8 82 16 148/73 (98) 96 Room Air 12/15/16 00:01 Room Air 12/14/16 23:51 36.8 74 18 136/72 (93) 97 Room Air 12/14/16 20:00 Room Air 12/14/16 19:46 84 126/72 (90) 12/14/16 16:57 176/94 (121) 12/14/16 16:05 36.7 83 18 208/83 (124) 97 Room Air 12/14/16 16:00 Room Air
[2016-12-15] MEDS: KETOROLAC TROMETHAMINE 15 MG/ML VIAL IV. PRN (11:40)
[2016-12-15] MEDS ORDERED: DXY100 PO (12:53)
[2016-12-15] MEDS ORDERED: MRLP17X PO (12:53)
[2016-12-15] MEDS ORDERED: OXYC-57 PO (12:53)
[2016-12-15] MEDS ORDERED: PRT40 PO (12:53)
[2016-12-15] MEDS ORDERED: LORA-741 PO (12:54)
--- NOTE | 2016-12-15 13:03 | Discharge Instructions ---
Discharge Instructions Date of Service Dec 15, 2016. Admission Reason for Admission: Fall, Rhabdomyolysis Discharge Discharge Diagnosis / Problem: Fall,Multiple Pelvic fracture,Subacute Stroke, Dizziness Discharge Goals Goal(s): Prevent Disease Progression Activity Recommendations Activity Level: Assistance Required Therapies: Physical Therapy, Occupational Therapy . Additional Information Patient informed of condition: Yes Advance Directives: No DNR: No Level of Care: Skilled Communicable Disease: No Prognosis: Stable Oxygen at (LPM): 2 liters/min via NC as needed Cruz Catheter: No Instructions / Follow-Up Instructions / Follow-Up Dr Harrison on 12/21/16 at 10:45 AM.Keep appointment with Ortho.Take precaution to avoid fall Current Hospital Diet Patient's current hospital diet: Regular Diet Discharge Diet Recommended Diet: Regular Diet Pending Studies Studies pending at discharge: no Medical Emergencies . Who to Call and When: Medical Emergencies: If at any time you feel your situation is an emergency, please call 911 immediately. . Non-Emergent Contact Non-Emergency issues call your: Primary Care Provider . Past History Medical & Surgical History: (1) Stroke (cerebrum) (2) Ulcer of lower limb, unspecified (3) Contusion of lower leg (4) Pelvic fracture (5) Fall (6) Contusion of knee . "Provider Documentation" section prepared by Kalli Davis. . Core Measure Problem Core Measures: None
[2016-12-15] MEDS ORDERED: ASPEC81 PO (13:12)
--- NOTE | 2016-12-15 13:33 | Neurology Consultation ---
Neurology Consultation Date of Service Dec 15, 2016. Neurology Consultation Mrs Jose Alfredo Joy is being discharged today to [facility] I am reviewed her chart from my office and will not be seeing her prior to her departure She needs to be on asa 81 mg as she was not on this before and has had a cva at an indeterminate time but likey in the past month that by history and exam is clinically silent ( left deep subfrontal ) and may reflect intracranial stenosis or aortic plaque in light of the negative duplex and negative echo but could still be due to paroxysmal a fib She should be seen in follow up by neurology in about a month and the option of further testing with a zio patch/ cardionet can be offered Seee no point in dual antiplatelet rx at this point in light of the indeterminate time of cva occurrence and the fact that she was aspirin naive Dillan Kwon MD
[2016-12-15 14:36] VITALS: BP 148/73; PULSE 82; TEMP 36.8; O2SAT 96
[2016-12-15 15:54] VITALS: BP 139/77; PULSE 84; TEMP 36.7; O2SAT 97
--- NOTE | 2016-12-15 19:00 | Discharge Summary ---
Discharge Summary Date of Service Dec 15, 2016. Discharge Summary Admission Date: Dec 11, 2016 at 03:48 Discharge Date: Dec 15, 2016 Discharge Disposition: shelter facility Principal Diagnosis: Fall,Multiple Pelvic fracture,Subacute Stroke,Dizziness Secondary Diagnoses/Problems: Please see H&P and Hospital Progress note Consultations: Neurology and Ortho Medication Reconciliation New Medications: Aspirin (Aspirin EC Low Dose) 81 Mg Ectab 81 MG PO QPM for 30 Days, #30 Doxycycline Hyclate (Doxycycline Hyclate) 100 Mg Cap 100 MG PO BID for 6 Days, #10 CAP Oxycodone/Acetaminophen 5MG/325MG (Percocet 5MG/325MG) Tab 1 TAB PO Q6H PRN for moderate-severe pain for 7 Days, #20 TAB PAIN Pantoprazole (Pantoprazole Sodium) 40 Mg Tab 40 MG PO QAM for 30 Days, #30 TAB Polyethylene (Miralax) 17 Gm Pow 17 GM PO DAILY PRN for Constipation for 30 Days, #30 DOSE Changed Medications: Lorazepam (Ativan) 0.5 Mg Tab 0.25 MG PO DAILY PRN for Anxiety for 10 Days, #5 TAB (Changed from: 0.5 MG) Continued Medications: Ascorbic Acid (Vitamin C) 500 Mg Cap 500 MG PO BID Biotin (Biotin) 1,000 Mcg Tab 1000 MCG PO QAM Brimonidine Tartrate (Brimonidine Tartrate) 0.2 % Ricarda 1 DROP OPB BID Bromelains (Bromelain) 100 Mg Tab 375 MG PO QAM Calcium Carbonate-Vitamin D (Calcium) 1 Tab Tab 1 TAB PO QAM Cholecalciferol (Vitamin D) 400 Unit Tab 4 TABS PO QAM Lisinopril (Prinivil) 5 Mg Tab 5 MG PO DAILY, TAB Multiple Vitamins W/ Minerals (Preservision Areds) 1 Cap Cap 1 CAP PO QAM Hurley 3 Fatty Acids-Hurley 6 Fa (Hurley 3-6-9 Complex) 1 Cap Cap 1 CAP PO QAM Phytonadione (Vitamin K) 100 Mcg Tab 100 MCG PO QAM Prednisolone Acetate (Ophth) (Pred Forte 1% Oph) 1 % Zully 1 DROPS OPL DAILY, #5 ML Vitamin E (Vitamin E) 1,000 Unit Cap 1000 INTUNIT PO QAM Zolpidem Tartrate (Ambien) 5 Mg Tab 5 MG PO HS, TAB Discontinued Medications: Bilberry (Vaccinium Myrtillus) (Bilberry) 100 Mg Cap 100 MG PO QAM Ginkgo Biloba (Ginkgo Biloba Extract) 40 Mg Cap 40 MG PO QAM Lutein (Lutein) 6 Mg Cap 6 MG PO QAM Admission Information HPI (per Admitting provider): This is an 86 year old female with a PMH of HTN, colitis who lives alone at home - presented to the ER after being found in the basement on the ground by a family member. As per daughter, who is at bedside - the patient was last seen on Sunday night (December 08) - she was not answering phone calls over the weekend and was found Sunday by her son-in-law at the bottom of the stairs in the basement. She uses a walker at baseline - walker was not found near the patient or near the basement door. As per the daughter, the patient has been weak since December 04 - there was a family dinner and patient had a very difficult time standing up. She was seen by her primary care physician on December 08 due to redness and pain in the R lower extremity - was given antibiotics for a possible cellulitis. Currently, she has some pain in the R pelvis area as well as L shoulder. Does not recall the fall at all. States she had been feeling weak prior to the fall. Past Medical/Surgical History Medical Problems: (1) Contusion of knee Status: Resolved (2) Contusion of lower leg Status: Resolved (3) Ulcer of lower limb, unspecified Status: Resolved (4) Ulcer of lower limb, unspecified Status: Resolved Family History No pertinent family history Social History Smoking Status: Never Smoker Drug Use: none Marital Status: Occupational Status: retired Immunizations History of Influenza Vaccine: Unknown History of Tetanus Vaccine?: Unknown History of Pneumococcal: Unknown History of Hepatitis B Vaccine: Unknown Multi-Drug Resistant Organisms History of MDRO: No Allergies Coded Allergies: Sulfamethoxazole w/Trimethoprim (Verified Allergy, Unknown, ITCHY, 12/10/16) Home Medications Scheduled Ascorbic Acid (Vitamin C), 500 MG PO BID Bilberry (Vaccinium Myrtillus) (Bilberry), 100 MG PO QAM Biotin (Biotin), 1,000 MCG PO QAM Brimonidine Tartrate (Brimonidine Tartrate), 1 DROP OPB BID Bromelains (Bromelain), 375 MG PO QAM Calcium Carbonate-Vitamin D (Calcium), 1 TAB PO QAM Cholecalciferol (Vitamin D), 4 TABS PO QAM Ginkgo Biloba (Ginkgo Biloba Extract), 40 MG PO QAM Lisinopril (Prinivil), 5 MG PO DAILY Lutein (Lutein), 6 MG PO QAM Multiple Vitamins W/ Minerals (Preservision Areds), 1 CAP PO QAM Hurley 3 Fatty Acids-Hurley 6 Fa (Hurley 3-6-9 Complex), 1 CAP PO QAM Phytonadione (Vitamin K), 100 MCG PO QAM Prednisolone Acetate 0.12% (Pred Mild 0.12% ), 1 DROP OPL DAILY Vitamin E (Vitamin E), 1,000 INTUNIT PO QAM Zolpidem Tartrate (Ambien), 5 MG PO HS Scheduled PRN Lorazepam (Ativan), 0.5 MG PO DAILY PRN for Anxiety Review of Systems Constitutional: + weakness, + fatigue, No fever, No chills, No sweats Eyes: No worsening of vision, No eye pain ENT: No sore throat Respiratory: No cough, No sputum, No wheezing, No shortness of breath, No dyspnea on exertion, No dyspnea at rest, No hemoptysis Cardiovascular: No chest pain, No edema, No palpitations Abdomen: No pain, No nausea, No vomiting, No diarrhea, No constipation, No GI bleeding Musculoskeletal: + joint pain (R pelvis) Genitourinary - Female: No dysuria, No urinary frequency, No urinary urgency, No urinary incontinence, No urinary retention, No hematuria Neurologic: + balance problems, No weakness, No numbness/tingling, No vertigo Psychiatric: No depression symptoms, No anxiety, No insomnia Endocrine: No fatigue Hematologic / Lymphatic: No abnormal bleeding/bruising Integumentary: No rash Allergic / Immunologic: No environmental allergies, No seasonal allergies Physical Ex - H&P Physical Exam Vital Signs Date Time Temp Pulse Resp B/P (MAP) Pulse Ox O2 Delivery O2 Flow Rate FiO2 12/11/16 01:09 104 17 92 12/11/16 01:01 163/79 12/11/16 00:54 102 22 96 12/11/16 00:39 101 15 97 12/11/16 00:31 143/63 12/11/16 00:24 103 12 95 12/11/16 00:01 155/83 12/10/16 23:54 103 23 95 12/10/16 23:40 103 12/10/16 23:39 103 15 94 12/10/16 23:37 95 Room Air 12/10/16 23:37 93 Room Air 12/10/16 23:37 37.1 104 15 176/85 96 Room Air 12/10/16 23:33 176/85 General Appearance: + mild distress (secondary to pain), + pertinent finding (+ tired, +weakness) Head: normocephalic, atraumatic Respiratory/Chest: chest non-tender, lungs clear, normal breath sounds, no respiratory distress, no accessory muscle use Cardiovascular: no edema, no murmur, + tachycardia Abdomen/GI: normal bowel sounds, non tender, soft Extremities/Musculoskelatal: no calf tenderness, normal capillary refill, no pedal edema, + pertinent finding (+erythema at the R lateral aspect) Neurologic/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: 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, no motor/sensory deficits, alert, normal mood/affect, oriented x 3 Skin: + pertinent finding (bruising throughout body) Lymphatic: no adenopathy Diagnostics - H&P Diagnostics Laboratory Results Results Past 24 Hours Test 12/10/16 23:34 12/10/16 23:50 12/10/16 23:59 12/11/16 00:43 Range/Units Creatine Kinase MB Ratio 2.5 0-3.0 White Blood Count 19.69 4.8-10.8 K/uL Red Blood Count 4.50 4.2-5.4 M/uL Hemoglobin 13.0 12.0-16.0 g/dL Hematocrit 38.6 37-47 % Mean Corpuscular Volume 85.8 80-100 fL Mean Corpuscular Hemoglobin 28.9 25-34 pg Mean Corpuscular Hemoglobin Concent 33.7 32-36 g/dl Platelet Count 211 130-400 K/uL Mean Platelet Volume 10.3 7.4-10.4 fL Neutrophils (%) (Auto) 88.3 % Lymphocytes (%) (Auto) 4.8 % Monocytes (%) (Auto) 6.3 % Eosinophils (%) (Auto) 0.1 % Basophils (%) (Auto) 0.2 % Neutrophils # (Auto) 17.40 1.4-6.5 K/uL Lymphocytes # (Auto) 0.94 1.2-3.4 K/uL Monocytes # (Auto) 1.24 0.11-0.59 K/uL Eosinophils # (Auto) 0.02 0-0.5 K/uL Basophils # (Auto) 0.04 0-0.2 K/uL RDW Standard Deviation 39.1 36.4-46.3 fL RDW Coefficient of Variation 12.3 11.5-14.5 % Immature Granulocyte % (Auto) 0.3 % Immature Granulocyte # (Auto) 0.05 0.00-0.02 K/uL Prothrombin Time 11.0 9.0-12.0 SECONDS Prothromb Time International Ratio 1.0 0.9-1.1 Sodium Level 137 136-145 mmol/L Potassium Level 4.2 3.5-5.1 mmol/L Chloride Level 102 98-107 mmol/L Carbon Dioxide Level 23 21-32 mmol/L Anion Gap 12.0 3-11 mmol/L Blood Urea Nitrogen 17 7-18 mg/dl Creatinine 0.70 0.60-1.20 mg/dl Est Creatinine Clear Calc Drug Dose 45.0 ml/min Estimated GFR () 92.2 Estimated GFR (Non- 79.6 BUN/Creatinine Ratio 24.4 10-20 Random Glucose 127 70-99 mg/dl Calcium Level 9.0 8.5-10.1 mg/dl Total Bilirubin 1.0 0.2-1 mg/dl Direct Bilirubin 0.2 0-0.2 mg/dl Aspartate Amino Transf (AST/SGOT) 40 15-37 U/L Alanine Aminotransferase (ALT/SGPT) 36 12-78 U/L Alkaline Phosphatase 89 45-117 U/L Total Creatine Kinase 348 26-192 U/L Creatine Kinase MB 8.7 0.5-3.6 ng/ml Troponin I < 0.015 0-0.045 ng/ml Total Protein 6.5 6.4-8.2 gm/dl Albumin 3.4 3.4-5.0 gm/dl Bedside Glucose 131 70-90 mg/dl Urine Color YELLOW Urine Appearance CLEAR CLEAR Urine pH 5.5 4.5-7.5 Urine Specific [place] 1.019 1.000-1.030 Urine Protein NEG NEG Urine Glucose (UA) 2+ NEG Urine Ketones TRACE NEG Urine Occult Blood NEG NEG Urine Nitrite NEG NEG Urine Bilirubin NEG NEG Urine Urobilinogen NEG NEG Urine Leukocyte Esterase NEG NEG Impression - H&P Impression Assessment and Plan This is an 86 year old female with a PMH of HTN, colitis who lives alone at home presented after a fall R Pelvic/Acetabular Fracture s/p fall will try Toradol PRN morphine for breakthrough pain ortho consultation for further recommendations - weightbearing status, etc. PT/OT discharge planning - lives alone, will need rehab Fall likely from weakness, recent infection (cellulitis), ambulatory dysfunction/ balance issues uses walker at baseline, was not using this when fall occurred monitor in tele check orthostatics likely all related from weakness check an echo Head CT negative PT/OT Mild Rhabdomyolysis CPK mildly elevated IVFs repeat CPK in AM R LE Cellulitis erythema, R lateral wound, healing WBC elevated, possibly dehydration vs. infection? start Keflex QID HTN continue Lisinopril DVT ppx subq heparin FULL CODE VTE Prophylaxis VTE Risk Assessment Done? 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 Will need rehab -Discharge today to SNF Constipation Bowel not moved for the last few days Will tri Suppository.MOM and Enema Resolved Subacute Left Periventricular Frontal Stroke Not sure whether Thrombotic and or Emboli Carotis US,ECHO -negative for any source Has been put on Full dose of Aspirin Appreciate Neurology input Was not taking any Aspirin before Dose of aspirin has been changed to 81 mg to decrease side effects Protonix added Physical deconditioning, likely age related , progressively worsening -No signs of infection noted at this point -CT of the Head-Subacute /chronic stroke -Neurology consulted -MRI of the Head -PT/OT -Dizziness could be multifactorial -fall,infection,stroke -Advised to take time before any physical activity RLE Cellulitis S/P Trauma to right daily, Was being treated with Keflex since 12/08/16. Had a reaction to Keflex so was changed to Augmentin by PCP -Will change to Doxycycline x 5 more days -No concerning signs of worsening of cellulitis- improving HTN continue Lisinopril Controlled DVT ppx subq heparin DISPOSITION PT/OT Likely to need Rehab FULL CODE Discussed with [facility]charge today to SNF Total time spent on discharge = 35 minutes This includes examination of the patient, discharge planning, medication reconciliation, and communication with other providers. Discharge Instructions Date of Service Dec 15, 2016. Admission Reason for Admission: Fall, Rhabdomyolysis Discharge Discharge Diagnosis / Problem: Fall,Multiple Pelvic fracture,Subacute Stroke, Dizziness Discharge Goals Goal(s): Prevent Disease Progression Activity Recommendations Activity Level: Assistance Required Therapies: Physical Therapy, Occupational Therapy . Additional Information Patient informed of condition: Yes Advance Directives: No DNR: No Level of Care: Skilled Communicable Disease: No Prognosis: Stable Oxygen at (LPM): 2 liters/min via NC as needed Cruz Catheter: No Instructions / Follow-Up Instructions / Follow-Up Dr Harrison on 12/21/16 at 10:45 AM.Keep appointment with Ortho.Take precaution to avoid fall Please make an appointment with Dr Kwon-Neurology in 1 month. Current Hospital Diet Patient's current hospital diet: Regular Diet Discharge Diet Recommended Diet: Regular Diet Pending Studies Studies pending at discharge: no Medical Emergencies . Who to Call and When: Medical Emergencies: If at any time you feel your situation is an emergency, please call 911 immediately. . Non-Emergent Contact Non-Emergency issues call your: Primary Care Provider . Past History Medical & Surgical History: (1) Stroke (cerebrum) (2) Ulcer of lower limb, unspecified (3) Contusion of lower leg (4) Pelvic fracture (5) Fall (6) Contusion of knee . "Provider Documentation" section prepared by Kalli Davis. . Core Measure Problem Core Measures: None <Electronically signed by Kalli Davis M.D.> Signed: 12/15/16 6900 Additional Copies To Dillan Harrison III, M.D.
== END 2016-12-15 19:30 | DRG 551 ==
LOC: EDBD 23:24 → C.EDB 23:25 → C.2T 12-11 03:48 → ENRESERV 12-11 03:58 → C.MS4W 12-13 20:00
PROVIDERS: ADMIT Family Medicine; ATTEND Internal Medicine
DX: S32.19XA Other fracture of sacrum, initial encounter for closed fracture (principal); I63.8 Other cerebral infarction; S32.511A Fracture of superior rim of right pubis, initial encounter for closed fracture; M62.82 Rhabdomyolysis; L03.115 Cellulitis of right lower limb; S32.591A Other specified fracture of right pubis, initial encounter for closed fracture; S92.404A Nondisplaced unspecified fracture of right great toe, initial encounter for closed fracture; I10 Essential (primary) hypertension; K59.00 Constipation, unspecified; Z79.899 Other long term (current) drug therapy; W10.9XXA Fall (on) (from) unspecified stairs and steps, initial encounter